=== PATIENT | male | born 1965 | race Caucasian/White ===

== ENCOUNTER → 2020-03-12 11:00 | Outpatient (CLI) | payer BC, SELFPAY ==
[2020-02-22 07:10] VITALS: BMI 47.4
== END ==
PROVIDERS: Referring Provider Internal Medicine Critical Care Medicine; Visit Provider Internal Medicine Critical Care Medicine
DX: G47.33 Obstructive sleep apnea (adult) (pediatric) (principal)
CPT/HCPCS: 98960; G0463

== ENCOUNTER 2020-06-07 16:44 | Outpatient (RCR) | payer BC, SELFPAY ==
[2020-05-23 07:45] VITALS: BMI 46.8
== END 2020-08-20 23:59 ==
LOC: IMMUN 16:44
PROVIDERS: PCP Family Medicine; Visit Provider Family Medicine
DX: Z23 Encounter for immunization (principal)
CPT/HCPCS: 0001A; 0002A; 91300

== ENCOUNTER 2021-05-13 15:26 | Emergency (ER) | payer BC, SELFPAY ==
[2021-05-13 15:27] VITALS: BP 147/104; PULSE 73; RESP 15; TEMP 36.1; O2SAT 97; BMI 47.5
--- NOTE | 2021-05-13 16:08 | EDS_ITS ---
HPI History of Present Illness Chief Complaint: Lower Extremity Injury Informant: patient Onset/Context/Timing Onset: Days (8 days ago) Context: Gradual Onset Current Severity: Mild Maximum Severity: Moderate Narrative Narrative: Patient presents secondary to right lower extremity pain. 8 days ago he slipped and fell on the ice. He states he hit his left hand and his right leg flew up in the air. He denies striking his right leg on anything. 2 days later when he went to go to bed he had significant pain with any weightbearing. Pain seems to be on the lateral portion of his knee and over his proximal lower leg. [facility] Medical History (Updated 05/13/21 @ 16:[address] Erna Sher MD) Depression Hypertension Insomnia Obstructive sleep apnea Home Medications cetirizine 10 mg tablet 10 mg PO DAILY 12/28/19 [History Last Taken Unknown] irbesartan 150 mg tablet 150 mg PO DAILY 12/28/19 [History Last Taken Unknown] sertraline 100 mg tablet 100 mg PO DAILY 12/28/19 [History Last Taken Unknown] trazodone 50 mg tablet 50 mg PO DAILY #30 tab 11/01/20 [Rx Last Taken Unknown] trazodone 50 mg tablet 75 mg PO QHS #135 tab 11/21/20 [Rx Last Taken Unknown] Allergy/AdvReac Type Severity Reaction Status Date / Time clarithromycin [From Biaxin] Allergy Mild diarrhea Verified 11/21/20 06:47 Family History Mother Diabetes Hypertension Father Prostate cancer Hypertension Surgical History s/p right catarct removed s/p skin cancer removed s/p tubes placed in ears Social History Smoking Status: Never smoker alcohol intake: current details: occasionally substance use type: does not use ROS ROS ED Constitutional Constitutional ED: Denies chills or fever(s) Eyes Eyes: Denies change in vision ENT ENT ED: Denies sore throat Cardiovascular Cardiovascular: Denies chest pain Respiratory/Chest Respiratory/Chest: Denies cough or dyspnea Gastrointestinal Gastrointestinal: Denies abdominal pain, nausea or vomiting Musculoskeletal Musculoskeletal: Reports arthralgias; Denies back pain or neck pain Integumentary Denies rash Neurologic Neurologic: Denies headache(s) Allergic/Immunologic Allergic/Immunologic ED: Denies urticaria EXAM Physical Exam Const Vital Signs: 05/13/21 15:27 Temperature 97.0 F L Temperature Source Temporal Pulse Rate 73 Respiratory Rate 15 Blood Pressure 147/104 H Blood Pressure Mean 118 Pulse Ox 97 Oxygen Delivery Method Room Air Positive well nourished and well developed General Appearance ED: well developed HEENT Reports moist mucous membranes Eyes PERRL and EOMs intact bilaterally Neck supple Chest Wall inspection of chest normal and palpation of chest normal Resp normal respiratory effort and clear to auscultation bilaterally Cardio regular rate and regular rhythm GI non-tender Palpation: soft Extremity Extremity Narrative: No reproducible tenderness to palpation over the right lowe r extremity. Minimal if any edema noted to the right lower extremity. Strong distal pulses. Full range of motion of joints with good sensation distally. Neuro oriented x3 and no sensory deficits noted Sensorium / Orientation: alert Motor Exam: strength 5/5 throughout Psych mental status grossly normal Skin no rashes or lesions noted MDM MDM MDM Narrative Medical decision making narrative: X-rays of the right knee obtained. Radiography Diagnostic Testing: Clinical Impression(s) from Imaging Studies Knee X-Ray 05/13/21 16:14 IMPRESSION: Normal x-ray examination of the knee. Electronically Signed: Kyle Menendez MD (Brooks) at 16:32 EST Reading Location ID and State: [address] [place] [address] , Service support , Treatment and Re-Evaluation Comments:: X-rays from interpretation with no acute changes. Radiology interpretation is also reviewed. We discussed potential of ultrasound of the leg to rule out blood clot, however patient is very adamant that he did not strike his leg on anything. He will be referred to orthopedics for follow-up. He will continue ibuprofen. Discharge Plan Triage Chief Complaint: Lower Extremity Injury ED Provider: Erna Sher Dx/Rx/DC Orders Clinical Impression: Right knee sprain Instructions: ED Knee Sprain Prescriptions: No Action sertraline [Zoloft] 100 mg tablet 100 mg PO DAILY RF: 0 irbesartan 150 mg tablet 150 mg PO DAILY RF: 0 cetirizine [Zyrtec] 10 mg tablet 10 mg PO DAILY RF: 0 trazodone 50 mg tablet 75 mg PO QHS Qty: 135 RF: 3 trazodone 50 mg tablet 50 mg PO DAILY Qty: 30 RF: 5 Primary Care Provider: Mike Demarco Referrals: Mike Demarco MD [Primary Care Provider] - Michael James DO [STAFF PHYSICIAN] - As Needed Disposition Disposition: Home, Self Care
--- NOTE | 2021-05-13 16:14 | RAD_ITS ---
STUDY: X-RAY - RIGHT KNEE REASON FOR EXAM: Male, 55 years old. RIGHT KNEE PAIN AFTER FALLING A WEEK AGO THIS PAST WEDNESDAY. STATES IT IS STILL SORE BUT AMBULATED WITH A STEADY GAIT. TECHNIQUE: 4 view(s) of the knee. COMPARISON: None. FINDINGS: Normal visualized distal femur. Normal visualized proximal tibia and fibula. Normal proximal tibiofibular articulation. Normal medial femorotibial compartment. Normal lateral femorotibial compartment. Normal patellofemoral articulation. There is no demonstrated joint effusion. The soft tissue structures are unremarkable. RAD/Knee 4 or More Views IMPRESSION: Normal x-ray examination of the knee. Electronically Signed: Kyle Menendez MD (Brooks) at 16:32 EST Reading Location ID and State: [facility] / [place] , Service support ,
== END 2021-05-13 16:49 | disposition home or self-care (01) ==
PROVIDERS: Emergency Provider Emergency Medicine; PCP Family Medicine; Visit Provider Emergency Medicine
DX: S83.91XA Sprain of unspecified site of right knee, initial encounter (principal); I10 Essential (primary) hypertension; W00.0XXA Fall on same level due to ice and snow, initial encounter; Y93.9 Activity, unspecified; Y92.9 Unspecified place or not applicable; F32.A Depression, unspecified; G47.33 Obstructive sleep apnea (adult) (pediatric); Z79.899 Other long term (current) drug therapy
CPT/HCPCS: 73564; 99282

== ENCOUNTER 2021-05-28 11:30 | Outpatient (RCR) | payer BC, SELFPAY ==
--- NOTE | 2021-05-12 19:06 | HP.OTEVAL_ITS ---
Patient's Visit Information MARY JO BOATENG is a 55 year old M, referred to Occupational Therapy by Dr. Johnie Lindo, , with a diagnosis of CTS left. Date of Evaluation: 05/12/21 Occupational Therapist: Tangela Spicer, RMR/Tamar, CHT - Subjective This 55 year old male was seen for OT eval with dx of left CTS. pt states sx was mid Mar. possible 03/28/21- pt states he continues to have tingling and weakness in his left hand- pt states difficulty with opening jar lids and strength with other IADLs. pt would like to know what more he can do to recover fully to his PLOF. - ROM Wrist: right 65/50 left 60/65 ROM Comments: right UD35 RD20. left UD 35 RD 15 - Strength Chain Saw Mechanic: right 90# left 50# Lateral Pinch: right 14# left 12# Tripod Pinch: right 14# left 4# - Sensation Thumb: right 2.83 left 3.61 Index: right 2.83 left 3.22 Middle: right 2.83 left 3.22 Ring: right 2.83 left 3.22 Little: right 2.83 left 3.22 - Quick DASH-Disab of Arm,Shoulder& Hand Quick DASH Score: 18.3325 - Goals Goal:: pt will demo a left pre billing specialist strength at 75# or greater to increase pts ind. with ADLs and IADL s by d/c. pt will demo a increase in left tripod pinch to 8# or greater to increase pts ind. with ADls and IADls by dc Goal:: pt will demo a increase in left Forearm supination and wrist ext by 20* or greater to improve pts ROM and decrease stress on nerve by d.c Goal:: pt will demo left median nerve sensation at 2.83 monofilaments indicating return of normal sensation by dc Goal:: pt will demo understanding of scar mtg by end of 2nd visit to limit hypertrophic scarring or scar adhesions Goal:: pt will demo understanding of work ergo by end of 2nd session to decrease risk of repetitive strain injuries - Rehabilitation General Assessment: pt demo with residual CTS following his CTR along with left pre billing specialist and tripod pinch weakness limiting pts ind. with ADLs and IADLs. pt would benefit from skilled OT services 2x week for 3 weeks. Today therapist ed. pt on scar mtg, and median nerve glides along with work erg- pt demo with with need of strengthening and will initiate this next visit. pt demo understanding and agree to POC. Rehabilitation Potential: Good - Anticipated Interventions A/AAROM/PROM, Strengthening, Scar Care, Triggerpoint Release, Modalities, Joint Protection/Energy Conservation, Ergonomic Education, Education re Diagnosis, Home Program - Visit Plan Frequency: 2x /Week Duration: 2-4 Weeks General Plan: posture strengthening with t-band (high, mid and low rows). forearm stretching. and initiate BTE TEXT: Thank you for the opportunity to evaluate your patient. For Medicare and Medicare HMO plans, please review the plan of care and approve it. It will need to be FAXED BACK to us at [phone] for Medicare purposes. Please let me know if there are questions or concerns regarding this plan of care. Physician Signature: Date:
--- NOTE | 2021-05-28 11:56 | HP.OTDCSUM_ITS ---
It has been my pleasure to treat MARY JO BOATENG under orders from Dr. Johnie Lindo DO, for the diagnosis of CTS left for a total of 6 visit(s). Please see the following information for a summary of their discharge status. % Improvement: 85 Objective/Function: pt demo with a 55# left battery container tester aluminum strength increase from 50#. left lateral pinch increased from 12# to 14#. left tripod pinch increased from 4# to 10#. monofilament testing left hand improved to 2.83 from thumb at 3.61,and 3.22 - indicating nerve repair- pt has done well in therapy and can continue with a HEP to increase functional strength. Patient Goals: Use Hand/Wrist/Arm Normally Again, Decrease Tingling/Numbness Goal:: pt will demo a left battery container tester aluminum strength at 75# or greater to increase pts ind. with ADLs and IADL s by d/c. pt will demo a increase in left tripod pinch to 8# or greater to increase pts ind. with ADls and IADls by dc Goal:: pt will demo a increase in left Forearm supination and wrist ext by 20* or greater to improve pts ROM and decrease stress on nerve by d.c Goal:: pt will demo left median nerve sensation at 2.83 monofilaments indicating return of normal sensation by dc Goal:: pt will demo understanding of scar mtg by end of 2nd visit to limit hypertrophic scarring or scar adhesions Goal:: pt will demo understanding of work ergo by end of 2nd session to decrease risk of repetitive strain injuries Plan: cont US and BTE strengthening Discharge Comments: pt was seen for 6 visit in OT following a left CTR- pt did well and has returned to his PLOF. pt will continue with HEP to further strengthen his battery container tester aluminum strength. If there are questions or concerns regarding this patient's occupational therapy, please fell free to call me at [phone]. Thank you for the referral of this patient. Sincerely, Tangela Spicer, OTR/L, CHT
== END 2021-05-28 12:56 | disposition home or self-care (01) ==
LOC: OT 11:30
PROVIDERS: PCP Family Medicine; Referring Provider Orthopaedic Surgery; Visit Provider Orthopaedic Surgery
DX: G56.02 Carpal tunnel syndrome, left upper limb (principal)
CPT/HCPCS: 97035; 97110; 97140; 97166; 97530

== ENCOUNTER 2023-03-29 05:34 | Emergency (ER) | payer BC, SELFPAY ==
[2023-03-29 05:35] VITALS: BP 172/95; PULSE 85; RESP 18; TEMP 36.6; O2SAT 98; BMI 48.3
--- NOTE | 2023-03-29 05:52 | EX.ED.DYSGE1 ---
HPI History of Present Illness Chief Complaint: Complaint Informant: patient Onset/Context/Timing Onset: Days (5) Context: Sudden Onset Timing: Intermittent Quality: Sharp Location: Right testicle Worsened by: Nothing Relieved by: Nothing Narrative Narrative: Presents with right testicular pain that began 5 days ago. Patient states it began rather suddenly. Patient states he saw his primary care physician at that time. Patient states they did an ultrasound to rule out torsion. Patient states this was negative. Patient states his pain had resolved. Patient states that this morning approximately 3 and half hours prior to arrival, his pain began again. Patient describes the pain as sharp. Patient states it is in the right testicle and radiates up into his lower abdomen. Patient states nothing makes it better and nothing makes it worse. Patient denies any fevers or chills. Patient denies any dysuria or hematuria. Patient admits to some nausea and vomiting. Patient states this is mainly from the pain. [facility] Medical History (Updated 03/29/23 @ 07:[address] Jose Rodriguez, DO) Depression Hypertension Insomnia Obstructive sleep apnea Home Medications cetirizine 10 mg tablet (Zyrtec) 10 mg PO DAILY 12/28/19 [History Last Taken Unknown] sertraline 100 mg tablet (Zoloft) 150 mg PO DAILY 12/28/19 [History Last Taken Unknown] ascorbate calcium (vitamin C) 500 mg tablet 500 mg PO DAILY 10/15/21 [History Last Taken Unknown] multivitamin (Daily Multi-Vitamin tablet) 1 tab PO DAILY 10/15/21 [History Last Taken Unknown] trazodone 50 mg tablet 75 mg (1.5 x 50 mg) PO QHS #135 tabs 03/09/23 [Rx Last Taken Unknown] alprazolam 0.5 mg tablet mg PO QHS PRN anxiety 03/29/23 [History Last Taken Unknown] buspirone 15 mg tablet 15 mg PO BID 03/29/23 [History Last Taken Unknown] irbesartan 150 mg tablet 150 mg PO DAILY 03/29/23 [History Last Taken Unknown] metformin 500 mg tablet 500 mg PO BID 03/29/23 [History Last Taken Unknown] oxycodone-acetaminophen 5 mg-325 mg tablet 1 tab PO Q6H PRN PRN Pain 3 days #12 TABLETS 03/29/23 [Rx Last Taken Unknown] Allergy/AdvReac Type Severity Reaction Status Date / Time clarithromycin [From Biaxin] Allergy Mild diarrhea Verified 03/29/23 05:41 Family History Mother Diabetes Hypertension Father Prostate cancer Hypertension Surgical History s/p right catarct removed s/p skin cancer removed s/p tubes placed in ears Social History Smoking Status: Never smoker alcohol intake: current details: occasionally substance use type: does not use ROS ROS ED Constitutional Constitutional ED: Denies chills or fever(s) Eyes Eyes: Denies blurry vision or change in vision ENT ENT ED: Denies rhinorrhea or sore throat Cardiovascular Cardiovascular: Denies chest pain or palpitations Respiratory/Chest Respiratory/Chest: Reports cough; Denies dyspnea Gastrointestinal Gastrointestinal: Reports nausea and vomiting Genitourinary Genitourinary ED: Denies dysuria or hematuria Musculoskeletal Musculoskeletal: Denies back pain or neck pain Integumentary Denies abscess or rash Neurologic Neurologic: Denies headache(s) or weakness Allergic/Immunologic Allergic/Immunologic ED: Denies mouth swelling or urticaria EXAM Physical Exam Const Vital Signs: 03/29/23 05:35 03/29/23 07:08 Temperature 97.9 F Temperature Source Temporal Pulse Rate 85 75 Respiratory Rate 18 15 Blood Pressure 172/95 H 148/87 H Blood Pressure Mean 120 107 Pulse Ox 98 92 Oxygen Delivery Method Room Air Room Air Positive well nourished, well developed and obese General Appearance ED: well developed and NAD Nutritional Appearance: obese HEENT Reports moist mucous membranes Neck supple and no JVD Chest Wall inspection of chest normal and palpation of chest normal Resp normal respiratory effort and clear to auscultation bilaterally Cardio regular rate and regular rhythm GI non-tender and non-distended Palpation: soft Narrative: There is no tenderness over the testicles. They have a vertical lie with the epididymis posterior. There is no edema. There is no erythema. There is no inguinal hernia noted. Back/Spine no CVA tenderness Neuro oriented x3, CN's II-XII intact bilaterally and no sensory deficits noted Sensorium / Orientation: alert Motor Exam: strength 5/5 throughout Psych mental status grossly normal MDM MDM MDM Narrative Medical decision making narrative: Differential diagnosis includes epididymitis, orchitis, inguinal hernia, ureteral calculus, and urinary tract infection. CT scan of the abdomen pelvis will be obtained to assess for ureteral calculus. Urinalysis will be obtained to assess for urinary tract infection. CBC will be obtained to assess for leukocytosis and anemia. Basic metabolic profile will be obtained to assess for electrolyte abnormality and renal function. Lab Data Attestation: I reviewed the patient's lab results. Lab results narrative: CBC was reviewed and was within normal limits. Basic metabolic profile was reviewed and was within normal limits. Urinalysis was reviewed. Occult blood was 250 with 5-10 red blood cells. There are 5-10 white blood cells noted. There is leukocyte esterase of 25. Labs: Laboratory Results - last 24 hr 03/29/23 03/29/23 05:43 07:26 WBC 9.7 RBC 4.88 Hgb 14.7 Hct 44.4 MCV 91.0 MCH 30.1 MCHC 33.1 RDW Std Deviation 44.5 H RDW Coeff of Rick 13.3 Plt Count 266 MPV 10.1 Immature Gran % (Auto) 0.600 Neut % (Auto) 62.5 Lymph % (Auto) 27.2 [place] % (Auto) 7.5 Eos % (Auto) 1.3 Baso % (Auto) 0.9 Absolute Neuts (auto) 6.1 Absolute Lymphs (auto) 2.64 Nucleated RBC % 0 Sodium 141 Potassium 4.0 Chloride 104 Carbon Dioxide 27.0 Anion Gap 10 BUN 22 H Creatinine 1.17 Estim Creat Clear Calc 108.99 Est GFR (MDRD) Af Amer 83 Est GFR (MDRD) Non-Af 69 BUN/Creatinine Ratio 18.8 Glucose 151 H Calcium 9.3 Urine Color Yellow Urine Clarity Clear Urine pH 6.0 Ur Specific [place] 1.025 Urine Protein 30 H Urine Glucose (UA) Normal Urine Ketones 5 H Urine Occult Blood 250 H Urine Nitrite Negative Urine Bilirubin Negative Urine Urobilinogen Normal Ur Leukocyte Esterase 25 H Urine RBC 5-10 SEEN Urine WBC 5-10 SEEN Ur Squamous Epith Cells 0-5 SEEN Urine Bacteria 1+ Urine Mucus 1+ Radiography Diagnostic Testing: Clinical Impression(s) from Imaging Studies Abdomen/Pelvis CT 03/29/23 05:57 IMPRESSION: 1. Mild right obstructive uropathy secondary to 5 mm UVJ stone 2. Hepatic steatosis and other nonurgent findings within body of report Electronically Signed: Jose Barone MD at 6:59 EST , CT scan of the abdomen pelvis was obtained. There is a 5 mm calculus at the right ureterovesicular junction with moderate hydronephrosis and hydroureter. This was interpreted by the radiologist was also independently reviewed by myself. Treatment and Re-Evaluation :: Patient was given IV fluids, morphine, and Zofran. Patient had no relief with the morphine. Patient was given a dose of Dilaudid. Patient states this did improve his pain. Patient was requesting further pain medication. Since the patient has normal renal function, patient was given a dose of Toradol. Patient was advised of his findings. Patient was given a prescription for Percocet. Patient was given referral for urology. Patient was instructed to follow-up in 3 to 5 days. Patient understood and was agreeable with the plan. All questions were answered. Discharge Plan Triage Chief Complaint: Complaint ED Provider: Jose Rodriguez Dx/Rx/DC Orders Clinical Impression: Calculus of distal right ureter, Morbid obesity with BMI of 45.0-49.9, adult Instructions: ED Kidney Stone with Pain Prescriptions: New oxycodone-acetaminophen [oxycodone-acetaminophen] 5-325 mg tablet 1 tab PO Q6H PRN PRN (Reason: Pain) 3 Days Qty: 12 0RF No Action sertraline [Zoloft] 100 mg tablet 150 mg PO DAILY cetirizine [Zyrtec] 10 mg tablet 10 mg PO DAILY multivitamin [Daily Multi-Vitamin] Tablet 1 tab PO DAILY ascorbate calcium (vitamin C) 500 mg tablet 500 mg PO DAILY buspirone 15 mg tablet 15 mg PO BID metformin 500 mg tablet 500 mg PO BID irbesartan 150 mg tablet 150 mg PO DAILY alprazolam 0.5 mg tablet PO QHS PRN trazodone 50 mg tablet 75 mg PO QHS Qty: 135 3RF Primary Care Provider: Mike Demarco Referrals: Mike Demarco MD [Primary Care Provider] - 3-5 Days Edenilson Soares MD [Med Staff - Active Staff] - 3-5 Days Disposition Disposition: Home, Self Care
--- NOTE | 2023-03-29 05:57 | CT_ITS ---
INDICATION: Right testicular, inguinal pain EXAMINATION: CT ABDOMEN AND PELVIS WITHOUT CONTRAST TECHNIQUE: Helically acquired images were obtained of the abdomen and pelvis without IV contrast. 2-D reconstructions reviewed. A radiation dose optimization technique was used for this scan. IV Contrast dosage and agent: None Oral contrast: None COMPARISON: None. FINDINGS: LOWER CHEST: No acute findings within the imaged lung bases. Heart size within normal limits. LIVER: Fatty infiltration of liver. No discrete mass. GALLBLADDER AND BILIARY TREE: No calcified gallstones identified. No pericholecystic edema demonstrated. No significant biliary ductal dilation. PANCREAS: No discrete mass or peripancreatic edema. SPLEEN: Normal size without discrete mass. ADRENAL GLANDS: Unremarkable. KIDNEYS AND URETERS: Right greater than left bilateral perinephric fat stranding. Mild right hydroureteronephrosis secondary to 5 mm ureterovesical junction stone. No hydronephrosis on the left. No discrete renal mass. PERITONEUM: No significant free peritoneal fluid. No free air detected. RETROPERITONEUM: No retroperitoneal mass or pathologic fluid collection. BOWEL: Normal appendix medial to cecum within right lower quadrant. No bowel obstruction or significant bowel thickening. No focal inflammatory change. LYMPH NODES: No enlarged mesenteric or retroperitoneal lymph nodes. VESSELS: No acute findings. No abdominal aortic aneurysm. URINARY BLADDER: 5 mm right UVJ stone. Incompletely distended urinary bladder. REPRODUCTIVE ORGANS: No pelvic masses. ABDOMINAL WALL: Small bilateral inguinal fat hernias. BONES: Mild skeletal degenerative changes. CT/Abdomen/Pelvis without Cont IMPRESSION: 1. Mild right obstructive uropathy secondary to 5 mm UVJ stone 2. Hepatic steatosis and other nonurgent findings within body of report Electronically Signed: Jose Barone MD at 6:59 EST ,
[2023-03-29] MEDS: 0.9% Normal Saline (1000mL) 1,000 ML 1000 ML IV (06:03)
[2023-03-29] MEDS: Ondansetron 4 MG/2 ML Vial IV (06:03)
[2023-03-29] MEDS: Morphine 4 MG/ML Syringe IV (06:03)
[2023-03-29 06:08] LABS: Absolute Lymphocyte Count 2.64 X10^3/uL (0.83-4.51); Absolute Neutrophil Count 6.1 X10^3/uL (2.0-7.7); Basophil# 0.09 X10^3/uL; Basophil% 0.9 % (0-1); Eosinophil# 0.13 X10^3/uL; Eosinophils% 1.3 % (0-5); Hematocrit 44.4 % (40-54); Hemoglobin 14.7 g/dL (13.0-16.5); Lymphocyte # 2.64 X10^3/ul (0.83-4.51); Lymphocyte % 27.2 % (19-41); Mean Corp Hgb Conc 33.1 g/dL (32-36); Mean Corpuscular Hgb 30.1 pg (27.0-32.0); Mean Platelet Vol. 10.1 fl (6.2-12.0); Monocyte# 0.73 X10^3/uL; Monocyte% 7.5 % (0-10); NRBC Flagged by Analyzer 0 % (0-5); Neutrophil # 6.05 X10^3/uL (2.7-7.7); Neutrophil % 62.5 % (47-70); Platelet Count 266 K/mm3 (150-450); RBC Distribution Width CV 13.3 % (11.6-14.6); RBC Distribution Width SD 44.5 fl (35.1-43.9); Red Blood Count 4.88 M/mm3 (4.6-6.2); White Blood Count 9.7 K/mm3 (4.4-11.0)
--- OUTSIDE RECORDS SUMMARY | 2023-03-29 06:17 | XMS RPT_ITS | CCD ---
Author Name Unknown Address [address] [place] [address] Organization [facility] Care Team Providers Care Management Instructor Name Role Phone Debora Demarco MD Primary Care Provider DEBORA DEMARCO Referring Unavailab DEBORA Najera Primary Care Unavailab DEBORA Najera Primary Care Unavailab DEBORA Najera Attending Unavailab DEBORA Najera Primary Care Unavailab DEBORA Najera Attending Unavailab DEBORA Najera Primary Care Unavailab DEBORA Najera Primary Care Unavailab DEBORA Najera Attending Unavailab DEBORA Najera Primary Care Unavailab DEBORA Najera Referring Unavailab DEBORA Najera Primary Care Unavailab le Allergies Allergy Classification Reported Allergen(s) Allergy Type Date of Onset Reaction(s) Facility (13 sources) Clarithromycin; Translations: [CLARITHROMYCIN] Drug Allergy 02-20-2016 Diarrhea [facility] (10 sources) atorvastatin; Translations: [ATORVASTATIN] Drug Allergy 02-24-2022 Intolerance [facility] Work Phone: Medications Current Medications Medication Drug Class(es) Dates Sig (Normalized) Sig (Original) amoxicillin 875 mg / clavulanate 125 mg oral tablet (1 source) Penicillin-class Antibacterial Start: 12-15-2022 End: 12-22-2022 take 1 tablet by mouth twice daily amoxicillin-clav ulanic acid (AUGMENTIN) 875-125 mg per tablet Take 1 tablet by mouth two times a day for 7 days. 14 tablet 0 12/15/2022 12/22/2022 Active Completed/Discontinued Medications Medication Drug Class(es) Dates Sig (Normalized) Sig (Original) atorvastatin 20 mg oral tablet (4 sources) HMG-CoA Reductase Inhibitor Start: 09-23-2020 End: 02-24-2022 take 1 tablet by mouth once daily at bedtime for hyperlipidemia atorvastatin (LIPITOR) 20 mg tablet Take 1 tablet by mouth daily at bedtime. For cholesterol. 30 tablet 5 09/23/2020 02/24/2022 Discontinued Problems Active Problems Problem Classification Problem Date Documented Da te Episodic/Chronic Abdominal pain (1 source) Right lower quadrant pain; Translations: [Groin pain, right] Onset: 03-24-2023 Episodic Anxiety disorders (11 sources) Mixed anxiety and depressive disorder; Translations: [Other specified anxiety disorders] Onset: 02-24-2022 Chronic Disorders of lipid metabolism (15 sources) Mixed hyperlipidemia; Translations: [Mixed hyperlipidemia] Onset: 09-20-2020 09-20-2020 Chronic Essential hypertension (19 sources) Hypertensive disorder; Translations: [Essential (primary) hypertension] Onset: 09-19-2020 09-19-2020 Chronic Genitourinary symptoms and ill-defined conditions (4 sources) Increased frequency of urination; Translations: [Frequency of micturition] Onset: 02-25-2022 Episodic Hyperplasia of prostate (13 sources) Urinary frequency due to benign prostatic hypertrophy; Translations: [Benign prostatic hyperplasia with lower urinary tract symptoms] Onset: 02-25-2022 Chronic Malaise and fatigue (1 source) Fatigue; Translations: [Other fatigue] Episodic Nutritional deficiencies (12 sources) Vitamin D deficiency; Translations: [Vitamin D deficiency, unspecified] Onset: 01-15-2022 01-15-2022 Chronic Other male genital disorders (2 sources) Right testicular pain; Translations: [Testicular pain, right] Onset: 03-24-2023 Episodic Other nutritional; endocrine; and metabolic disorders (12 sources) Morbid obesity; Translations: [Morbid (severe) obesity due to excess calories] 09-19-2020 Chronic Other nutritional; endocrine; and metabolic disorders (1 source) Body mass index 40+ - severely obese; Translations: [Morbid (severe) obesity due to excess calories] 12-01-2022 Chronic Other nutritional; endocrine; and metabolic disorders (1 source) Morbid (severe) obesity due to excess calories; Translations: [Obesity, Class III, BMI 40-49.9 (morbid obesity) (HCC)] Onset: 12-01-2022 Chronic Other upper respiratory disease (11 sources) Allergic rhinitis; Translations: [Allergic rhinitis, unspecified] 09-19-2020 Chronic Other upper respiratory infections (1 source) Chronic sinusitis, unspecified; Translations: [Unspecified sinusitis (chronic)] 12-15-2022 Chronic Residual codes; unclassified (14 sources) Obstructive sleep apnea syndrome; Translations: [Obstructive sleep apnea (adult) (pediatric)] 09-19-2020 Chronic Residual codes; unclassified (1 source) Obstructive sleep apnea (adult) (pediatric); Translations: [CARY treated with BiPAP] Onset: 09-19-2020 Chronic Past or Other Problems Problem Classification Problem Date Documented Date Episodic/Chronic Diabetes mellitus without complication (20 sources) Impaired fasting glycemia; Translations: [Impaired fasting glucose] Onset: 02-24-2022 09-20-2020 Episodic Immunizations and screening for infectious disease (4 sources) Patient encounter status; Translations: [Encounter for screening for human immunodeficiency virus [HIV]] Onset: 12-01-2022 Episodic Other screening for suspected conditions (not mental disorders or infectious disease) (10 sources) Other specified abnormal findings of blood chemistry; Translations: [Other abnormal blood chemistry] Onset: 01-15-2022 01-15-2022 Episodic Spondylosis; intervertebral disc disorders; other back problems (3 sources) Acute back pain with sciatica; Translations: [Lumbago with sciatica, left side] Onset: 05-26-2022 Episodic Results Test Name Value Interpretation Reference Range Facil ity Vital Signs Date Time Vital Sign Value Performing Clinician Hitesh hurtado 12-15-2022 18:41-0400 Body temperature 98.4 [degF] Earlene Acuna APRN.CNP Work Phone: [facility] 12-15-2022 18:41-0400 Body weight 157.49 kg Earlene Acuna APRN.CNP Work Phone: [facility] 12-15-2022 18:41-0400 Diastolic blood pressure 84 mm[Hg] Earlene Acuna APRN.CNP Work Phone: [facility] 12-15-2022 18:41-0400 Heart rate 86 /min Earlene Acuna NETWORK DESKTOP SUPPORT SPECIALIST.[employer] Work Phone: [facility] 12-15-2022 18:41-0400 Respiratory rate 16 /min Earlene Acuna NETWORK DESKTOP SUPPORT SPECIALIST.[employer]FFER [employer] Work Phone: [facility] 12-15-2022 18:41-0400 SaO2% (BldA) [Mass fraction] 96 % Earlene Acuna NETWORK DESKTOP SUPPORT SPECIALIST.[employer] BU[employer] Work Phone: [facility] 12-15-2022 18:41-0400 Systolic blood pressure 124 mm[Hg] Earlene Acuna NETWORK DESKTOP SUPPORT SPECIALIST.[employer] Work Phone: [facility] 12-01-2022 17:16-0400 Body weight 156.67 kg Debora Demarco MD Work Phone: [facility] 12-01-2022 17:16-0400 Diastolic blood pressure 76 mm[Hg] Debora Demarco MD Work Phone: [facility] 12-01-2022 17:16-0400 Heart rate 75 /min Debora Demarco MD Work Phone: [facility] 12-01-2022 17:16-0400 Respiratory rate 18 /min Debora Demarco MD Work Phone: [facility] 12-01-2022 17:16-0400 SaO2% (BldA) [Mass fraction] 97 % Debora Demarco MD Work Phone: [facility] 12-01-2022 17:16-0400 Systolic blood pressure 116 mm[Hg] Debora Demarco MD Work Phone: [facility] 05-26-2022 17:12-0400 Body weight 156.94 kg Debora Demarco MD Work Phone: [facility] 05-26-2022 17:12-0400 Diastolic blood pressure 82 mm[Hg] Debora Demarco MD Work Phone: [facility] 05-26-2022 17:12-0400 Heart rate 77 /min Debora Demarco MD Work Phone: [facility] 05-26-2022 17:12-0400 Respiratory rate 18 /min Debora Demarco MD Work Phone: [facility] 05-26-2022 17:12-0400 SaO2% (BldA) [Mass fraction] 96 % Debora Demarco MD Work Phone: [facility] 05-26-2022 17:12-0400 Systolic blood pressure 132 mm[Hg] Debora Demarco MD Work Phone: [facility] 03-23-2022 11:21-0500 Body weight 157.13 kg Debora Demarco MD Work Phone: [facility] 03-23-2022 11:21-0500 Diastolic blood pressure 76 mm[Hg] Debora Demarco MD Work Phone: [facility] 03-23-2022 11:21-0500 Heart rate 72 /min Debora Demarco MD Work Phone: [facility] 03-23-2022 11:21-0500 Respiratory rate 16 /min Debora Demarco MD Work Phone: [facility] 03-23-2022 11:21-0500 SaO2% (BldA) [Mass fraction] 96 % Debora Demarco MD Work Phone: [facility] 03-23-2022 11:21-0500 Systolic blood pressure 118 mm[Hg] Debora Demarco MD Work Phone: [facility] 02-24-2022 17:41-0500 Body height 181 cm Debora Demarco MD Work Phone: [facility] 02-24-2022 17:41-0500 Body weight 158.31 kg Debora Demarco MD Work Phone: [facility] 02-24-2022 17:41-0500 Diastolic blood pressure 72 mm[Hg] Debora Demarco MD Work Phone: [facility] 02-24-2022 17:41-0500 Heart rate 60 /min Debora Demarco MD Work Phone: [facility] 02-24-2022 17:41-0500 Respiratory rate 16 /min Debora Demarco MD Work Phone: [facility] 02-24-2022 17:41-0500 SaO2% (BldA) [Mass fraction] 97 % Debora Demarco MD Work Phone: [facility] 02-24-2022 17:41-0500 Systolic blood pressure 120 mm[Hg] Debora Demarco MD Work Phone: [facility] 12-23-2021 14:25-0400 Body weight 156.04 kg Debora Demarco MD Work Phone: [facility] 12-23-2021 14:25-0400 Diastolic blood pressure 82 mm[Hg] Debora Demarco MD Work Phone: [facility] 12-23-2021 14:25-0400 Heart rate 87 /min Debora Demarco MD Work Phone: [facility] 12-23-2021 14:25-0400 Respiratory rate 18 /min Debora Demarco MD Work Phone: [facility] 12-23-2021 14:25-0400 SaO2% (BldA) [Mass fraction] 97 % Debora Demarco MD Work Phone: [facility] 12-23-2021 14:25-0400 Systolic blood pressure 128 mm[Hg] Debora Demarco MD Work Phone: [facility] Encounters Encounter Date Encounter Type Care Provider Facility Start: 03-24-2023 ambulatory DEBORA Nguyen acility:[facility] Start: 03-24-2023 End: 03-25-2023 ambulatory DEBORA DEMARCO Facility:[facility] Start: 03-11-2023 End: 03-12-2023 ambulatory DEBORA DEMARCO Facility:[facility] Start: 01-28-2023 Refill Debora Demarco MD Work Phone: [facility] [place] Procedures Date Procedure Procedure Detail Performing Clinician Start: 12-01-2022 INFLUENZA VACCINE, A GE 6 MO - 64 YR, QUADRIVALENT (AFLURIA, FLULAVAL, FLUZONE) Debora Demarco MD Work Phone: Start: 02-28-2022 Lipid 1996 panel - S margy or Plasma Debora Demarco MD Work Phone: Start: 12-23-2021 Urnls dip stick/tabl et rgnt auto w/o microscopy Debora Demarco MD Work Phone: Start: 09-19-2020 Adult depression scr eening assessment Maria E Goldman NETWORK DESKTOP SUPPORT SPECIALIST.[employer] Work Phone: Plan of Treatment Date Care Activity Detail Author Start: 10-16-2027 Urine microalbumin profile [facility] Start: 02-28-2027 Lipid 1996 panel - S margy or Plasma Lipid Screening [facility] Start: 02-28-2027 LIPID SCREEN LIPID SCREEN [facility] Start: 12-23-2026 PROSTATE CANCER SCRE ENING DISCUSSION PROSTATE CANCER SCREENING DISCUSSION [facility] Start: 01-13-2026 LIPID SCREEN LIPID SCREEN [facility] Start: 02-28-2025 DIABETES SCREEN DIABETES SCREEN [facility] Start: 02-28-2025 Diabetes Screening Diabetes Screenin g [facility] Start: 12-23-2024 DIABETES SCREEN DIABETES SCREEN [facility] Start: 01-14-2024 DIABETES SCREEN DIABETES SCREEN [facility] Start: 12-02-2023 Annual PCP Team [employer] bolivar Disease Visit Annual PCP Team Chronic Disease Visit [facility] Start: 12-02-2023 BP Controlled (<130/80) BP Controlle d (<130/80) [facility] Start: 05-27-2023 ANNUAL PCP TEAM COLLECTIVE BARGAINING SPECIALIST [place] DISEASE VISIT ANNUAL PCP TEAM CHRONIC DISEASE VISIT [facility] Start: 03-23-2023 ANNUAL PCP TEAM COLLECTIVE BARGAINING SPECIALIST [place]OLIVAR DISEASE VISIT ANNUAL PCP TEAM CHRONIC DISEASE VISIT [facility] Start: 03-23-2023 BP CONTROLLED (<130/80) BP CONTROLLE D (<130/80) [facility] Start: 02-24-2023 ANNUAL PCP TEAM COLLECTIVE BARGAINING SPECIALIST BOLIVAR DISEASE VISIT ANNUAL PCP TEAM CHRONIC DISEASE VISIT [facility] Start: 02-24-2023 BP CONTROLLED (<130/80) BP CONTROLLE D (<130/80) [facility] Start: 02-24-2023 HEPATITIS B (1 of 3 - 3-dose series) HEPATITIS B (1 of 3 - 3-dose series) [facility] Immunizations Immunization Date Immunization Notes Care Provider Rey ilanmorgan 12-01-2022 influenza, injectabl e, quadrivalent, contains preservative Debora Demarco MD Work Phone: [facility] 12-06-2021 COVID-19 booster vaccine, age 12+ yr, bivalent (PFIZER-BIONTECH) Debora Demarco MD Work Phone: [facility] 12-06-2021 influenza, injectabl e, quadrivalent, preservative free Debora Demarco MD Work Phone: [facility] Work Phone: 12-06-2021 influenza, seasonal, injectable Debora Demarco MD Work Phone: [facility] 02-05-2021 zoster vaccine recombinant Debora Demarco MD Work Phone: [facility] Work Phone: 11-02-2020 influenza virus vaccine, unspecified formulation Maria E Goldman NETWORK DESKTOP SUPPORT SPECIALIST.[employer] Work Phone: [facility] 11-02-2020 influenza, injectabl e, quadrivalent, preservative free Debora Demarco MD Work Phone: [facility] Work Phone: 11-02-2020 zoster vaccine recombinant Maria E Goldman NETWORK DESKTOP SUPPORT SPECIALIST.BO[employer] BUFFER [employer] Work Phone: [facility] 06-28-2020 COVID-19 vaccine, ag e 12+ yr (PFIZER-BIONTECH - PURPLE TOP) Maria E Goldman NETWORK DESKTOP SUPPORT SPECIALIST.BOAT BUFFER P[employer]IC Work Phone: [facility] Work Phone: 06-07-2020 COVID-19 vaccine, ag e 12+ yr (PFIZER-BIONTECH - PURPLE TOP) Maria E Goldman NETWORK DESKTOP SUPPORT SPECIALIST.BO[employer] BUFFER [employer]IC Work Phone: [facility] Work Phone: 12-12-2019 influenza, injectabl e, quadrivalent, preservative free Debora Demarco MD Work Phone: [facility] Work Phone: 10-15-2017 tetanus toxoid, reduced diphtheria toxoid, and acellular pertussis vaccine, adsorbed Maria E Podlogar NETWORK DESKTOP SUPPORT SPECIALIST.BO[employer] BUFFER [employer]IC Work Phone: [facility] 12-14-2016 influenza, seasonal, injectable, preservative free Maria E Podlogar NETWORK DESKTOP SUPPORT SPECIALIST.BO[employer] BUFFER [employer]IC Work Phone: [facility] Work Phone: 03-05-2009 novel [id number], preservative-free, injectable Maria E Podlogar NETWORK DESKTOP SUPPORT SPECIALIST.BO[employer] BUFFER [employer] Work Phone: [facility] Work Phone: Payers Date Payer Category Payer Unknown ALVARO DARNELL SS PPO [id number] 2019-Present [phone] [address] [place] [address] PPO [id number] 2019 Unknown ALVARO BOTELLO ACCE SS PPO [id number] 2019-Present [phone] [address] [place] [address] PPO [id number] 2019 Unknown [id number] Social History Date Type Detail Facility Start: 05-19-2019 End: 12-23-2021 Tobacco smoking status NHIS Never smoked tobacco [facility] Start: 05-19-2019 End: 12-23-2021 Tobacco use and exposure Smokeless tobacco non-user [facility] Start: 01-10-2021 End: 12-15-2022 Alcohol intake Current drinker of alcohol (finding) [facility] Start: 09-18-2020 End: 02-20-2022 History SDOH Alcohol Frequency 3 [facility] Start: 09-18-2020 End: 02-20-2022 History SDOH Alcohol Std Drinks 1 [facility] Start: 09-18-2020 End: 02-20-2022 History SDOH Alcohol Binge 2 [place] [facility] Start: 09-19-2020 History SDOH Alcohol Comment 1-2 drinks per month [facility] Start: 09-18-2020 End: 02-20-2022 History SDOH Physical Activity MPS 5 [facility] Start: 09-18-2020 Education 17 [facility] Start: 1965 Sex Assigned At Male C [facility] Start: 12-11-2020 End: 12-23-2021 Exposure to SARS-CoV-2 (event) Not sure [facility] Start: 02-20-2022 History SDOH Physica l Activity DPW 0 [facility] Start: 02-20-2022 End: 12-01-2022 [facility] Start: 02-20-2022 End: 12-01-2022 Social connection and isolation panel [facility] Do you belong to any clubs or organizations such as faith groups, unions, fraMeilishuo or athletic groups, or school groups? No [facility] Are you now , , , , never or living with a partner? [facility] How often to you hav e a drink containing alcohol? Monthly or less [facility] How many standard dr inks containing alcohol do you have on a typical day? 1 or 2 [facility] How often do you hav e 6 or more drinks on 1 occasion? Less than monthly [facility] How hard is it for y ou to pay for the very basics like food, housing, medical care, and heating Not hard at all [facility] Do you feel stress - tense, restless, nervous, or anxious, or unable to sleep at night because your mind is troubled all the time - these days [OSQ] To some extent [facility] (I/We) worried saira er (my/our) food would run out before (I/we) got money to buy more. Never true [facility] Start: 02-05-2020 Gender identity Identifies as male gender (finding) [facility] Start: 02-05-2020 Sexual orientation Heterosexual (neeru martin) [facility] Clinical Notes 01-10-2021 to 01-10-2024 Telephone Encounter - Radha GaliciaCLARE - 01/28/2023 10:34 AM Earlene Akhtar APRN.[employer]AT BUFFER [employer] - 12/15/2022 6:49 PM Debora Warner MD - 12/01/2022 5:34 PM EDT Note Date & Type Note Facility 03-24-2023 Note HNO ID: [id number] Author: ETHEL MONROY CT Service: Radiology Author Type: Technologist Type: Progress Notes Filed: 03/24/2023 13:30 Note Text: Radiology Service Progress Note PATIENT NAME: Mary Jo Ordoñez DATE OF SERVICE: March 24, 2023 TIME: 1:29 PM PATIENT IDENTITY VERIFICATION COMPLETED USING TWO (2) IDENTIFIERS: Name and Date of confirmed by patient verbally and Name and Date of confirmed by identification band. FALL SCREENING: Has the patient had 2 falls in the last year or 1 fall with injury or currently using an Ambulatory Assistive Device (Walker, Cane, Wheelchair, Crutches, etc.)? No PATIENT GENDER DATA: Male PATIENT RELEVANT IMPLANT DATA REVIEWED: Not Applicable RADIOLOGY DEPARTMENT: Ultrasound PERIPHERAL IV DATA: Not applicable SIGNED BY: Ethel Monroy RDMS, RVJamel March 24, 2023 1:29 PM [facility] 03-24-2023 Note HNO ID: [id number] Author: DEBORA DEMARCO MD Service: ? Author Type: Physician Type: Progress Notes Filed: 03/24/2023 11:19 Note Text: Chief Complaint Patient presents with: Pain: Right testicle pain, woke up in the middle of the night with it. 3 weeks ago pulled left side/groin, it subsided a day or 2 ago. HPI Mary Jo Ordoñez is a 57 year old male who presents here today for Above Complaints. Patient complaining today of right testicular pain which started around 1am. Woke up in the middle of the night with sensation like something is pulling down on his testicle. Was able to change sleeping positions which helped for a few hours. Treated with ice pack which did help temporarily. Pain currently 5/10. No exacerbating factors. Denies fever/chills, testicular swelling, erythema, dysuria, urinary frequency, penile discharge, new sexual contacts, recent injury. Past medical history, appointments, medications, allergies reviewed. Previous Medical History PAST MEDICAL HISTORY Diagnosis Date Allergic rhinitis BPH (benign prostatic hyperplasia) Cutaneous horn excised Depression Elevated LFTs 01/15/[address] 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 [employer] Mixed hyperlipidemia Morbid obesity (HCC) CARY treated with BiPAP Traumatic cataract of right eye Vitamin D insufficiency Previous Surgical History PAST SURGICAL HISTORY Procedure Laterality Date COLONOSCOPY 2018 repeat in 5 years PAST SURGICAL HISTORY OF Left 2020 melanoma excision, ear REMV CATARACT EXTRACAP,INSERT LENS Right 2018 Family History FAMILY HISTORY Problem Relation Age of Onset Diabetes Mother Hypertension Mother Prostate Cancer Father 70 No Known Problems Sister No Known Problems Sister No Known Problems Brother No Known Problems Daughter Migraines Daughter Patient Allergies ALLERGIES Allergen Reactions Clarithromycin Diarrhea Lipitor [Atorvastat* Intolerance Aches, fatigue Current Medications Current Outpatient Medications on File Prior to Visit Medication Sig irbesartan (AVAPRO) 150 mg tablet Take 1 tablet by mouth once daily. tamsulosin (FLOMAX) 0.4 mg Take 2 capsules by mouth daily at bedtime. metFORMIN (GLUCOPHAGE) 500 mg tablet Take 1 tablet by mouth two times a day with meals. lamoTRIgine (LAMICTAL) 25 mg tablet Take 25 mg by mouth once daily. busPIRone (BUSPAR) 5 mg tablet Take 5 mg by mouth three times daily. Cholecalciferol, Vitamin D3, 50 mcg (2,000 unit) cap Take 1 capsule by mouth once daily. cetirizine (ZYRTEC) 10 mg tablet Take 10 mg by mouth once daily. BIPAP Initiate BiPAP @ cm of water with humidification. Mask (per patient preference) optional chin strap (if indicated) , filters, tubing, humidifier and lifetime supplies. sertraline (ZOLOFT) 100 mg tablet Take 1 tablet by mouth once daily. (Patient taking differently: Take 100 mg by mouth once daily. Take 150mg daily) traZODone (DESYREL) 50 mg tablet Take 1 tablet by mouth daily at bedtime. multivit-minerals/folic acid (MEN'S MULTIVITAMIN GUMMIES ORAL) Take 2 Each by mouth once daily. No current facility-administered medications on file prior to visit. Social History Social History Tobacco Use Smoking status: Never Smokeless tobacco: Never Vaping Use Vaping Use: Never used Substance Use Topics Alcohol use: Yes Comment: 1-2 drinks per month Drug use: Never Review of Symptoms REVIEW OF SYSTEMS See HPI EXAM: BP 134/82 Pulse 90 Temp 36.7 ?C (98.1 ?F) Resp 16 Wt (!) 156.7 kg (345 lb 6.4 oz) SpO2 98% BMI 47.82 kg/m? General Appearance: Well appearing, alert, in no acute distress, well-hydrated, well nourished.. Skin: Skin color, texture, turgor normal, no suspicious rashes or lesions. Abdomen: Soft, NT, ND +BS. No CVA tenderness. Genitalia: Penis normal. No urethral discharge. Scrotum normal to palpation. No hernia. Positive cremasteric reflex bilaterally. Health Maintenance List Hepatitis B Vaccine(1 of 3 - 3-dose series) Never done Colorectal Cancer Screening Never done BP Controlled (<130/80) due on 01/10/2022 Covid-19 Vaccine( season) due on 11/13/2022 Depression Assessment due on 03/15/2023 Annual PCP Team Chronic Disease Visit due on 12/02/2023 Diabetes Screening due on 03/11/2026 Prostate Cancer Screening Discussion due on 12/23/2026 Lipid Screening due on 02/28/2027 DTaP,Tdap,Td Vaccine(2 - Td or Tdap) due on 10/16/2027 Influenza Vaccine Completed Hepatitis C Screening Completed HIV Screening Completed Shingrix Vaccine Completed Component Latest Ref Rng AND Units 03/24/2023 GLUCOSE UA (POCT) Negative mg/dL 100 (A) BILIRUBIN UA (POCT) Negative Negative KETONE UA (POCT) Negative mg/dL Negative SPECIFIC GRAVITY UA (POCT) 1.005 - 1.030 1.020 HEMOGLOBIN/BLOOD UA (POCT) Negative Trace-intact ( (more content not included)... Peoples [facility] 01-28-2023 Miscellaneous Notes CHRISTOPHER-12/01/22 Labs-02/28/22 NOV-06/01/23 Radha Galicia LPN documented in this encounter [facility] 12-15-2022 Note HNO ID: [id number] Author: Earlene Acuna APRN.WAQAR Service: ? Author Type: Nurse Practitioner Type: Progress Notes Filed: 12/15/2022 7:00 PM Note Text: This note was created using Zyncdriter. Subjective Mary Jo Ordoñez is a 57 year old male. 57 year old male with PMH HTN, hyperlipidemia, CARY and anxiety presents with complaints of sinus problems. Acute onset 10 days ago +sinus pressure +cough +ear pressure +post nasal drainage +diarrhea Denies SOB or dyspnea Denies CP. Denies abdominal pain. Denies N/V/D Seen here on 12/10/22, negative COVID and flu Presents today with continued and worsening symptoms. The history is provided by the patient. No speech and language tutor was used. Sinus Problem This is a new problem. The current episode started 1 to 4 weeks ago. The problem occurs constantly. The problem has been gradually worsening. Associated symptoms include congestion, coughing, headaches and a sore throat. Pertinent negatives include no abdominal pain, anorexia, arthralgias, change in bowel habit, chest pain, chills, diaphoresis, fatigue, fever, joint swelling, myalgias, nausea, neck pain, numbness, rash, swollen glands, urinary symptoms, vertigo, visual change, vomiting or weakness. Nothing aggravates the symptoms. He has tried nothing for the symptoms. The treatment provided no relief. PAST MEDICAL HISTORY Diagnosis Date Allergic rhinitis BPH (benign prostatic hyperplasia) Cutaneous horn excised Depression Elevated LFTs 01/15/[address] 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 tamsulosin (FLOMAX) 0.4 mg Take 2 capsules by mouth daily at bedtime. irbesartan (AVAPRO) 150 mg tablet Take 1 tablet by mouth once daily. busPIRone (BUSPAR) 5 mg tablet Take 5 mg by mouth three times daily. Cholecalciferol, Vitamin D3, 50 mcg (2,000 unit) cap Take 1 capsule by mouth once daily. cetirizine (ZYRTEC) 10 mg tablet Take 10 mg by mouth once daily. BIPAP Initiate BiPAP @ cm of water with humidification. Mask (per patient preference) optional chin strap (if indicated) , filters, tubing, humidifier and lifetime supplies. sertraline (ZOLOFT) 100 mg tablet Take 1 tablet by mouth once daily. (Patient taking differently: Take 100 mg by mouth once daily. Take 150mg daily) traZODone (DESYREL) 50 mg tablet Take 1 tablet by mouth daily at bedtime. multivit-minerals/folic acid (MEN'S MULTIVITAMIN GUMMIES ORAL) Take 2 Each by mouth once daily. amoxicillin-clavulanic acid (AUGMENTIN) 875-125 mg per tablet Take 1 tablet by mouth two times a day for 7 days. metFORMIN (GLUCOPHAGE) 500 mg tablet Take 1 tablet by mouth twice daily with meals. FAMILY HISTORY Problem Relation Age of Onset Diabetes Mother Hypertension Mother Prostate Cancer Father 70 No Known Problems Sister No Known Problems Sister No Known Problems Brother No Known Problems Daughter Migraines Daughter Social History Tobacco Use Smoking status: Never Smokeless tobacco: Never Vaping Use Vaping Use: Never used Substance Use Topics Alcohol use: Yes Comment: 1-2 drinks per month Drug use: Never Review of Systems Constitutional: Negative for chills, diaphoresis, fatigue and fever. HENT: Positive for congestion, ear pain, postnasal drip, sinus pressure, sinus pain and sore throat. Negative for ear discharge. Eyes: Negative for photophobia, pain, discharge, redness, itching and visual disturbance. Respiratory: Positive for cough. Negative for apnea, choking and chest tightness. Cardiovascular: Negative for chest pain and leg swelling. Gastrointestinal: Negative for abdominal pain, anorexia, change in bowel habit, nausea and vomiting. Musculoskeletal: Negative for arthralgias, joint swelling, myalgias and neck pain. Skin: Negative for color change, pallor and rash. Allergic/Immunologic: Negative for environmental allergies, food allergies and immunocompromised state. Neurological: Positive for headaches. Negative for vertigo, weakness and numbness. Hematological: Negative for adenopathy. Does not bruise/bleed easily. Psychiatric/Behavioral: Negative for agitation and behavioral problems. Objective BP 124/84 Pulse 86 Temp 36.9 ?C (98.4 ?F) (Tympanic) Resp 16 Wt (!) 157.5 kg (347 lb 3.2 oz) SpO2 96% BMI 48.07 kg/m? Physical Exam Vitals and nursing note reviewed. Constitutional: (more content not included)... [facility] 12-15-2022 History of Presen t illness Narrative This note was created using Zyncdriter. Subjective Mary Jo Ordoñez is a 57 year old male. 57 year old male with PMH HTN, hyperlipidemia, CARY and anxiety presents with complaints of sinus problems. Acute onset 10 days ago +sinus pressure +cough +ear pressure +post nasal drainage +diarrhea Denies SOB or dyspnea Denies CP. Denies abdominal pain. Denies N/V/D Seen here on 12/10/22, negative COVID and flu Presents today with continued and worsening symptoms. The history is provided by the patient. No speech and language tutor was used. Sinus Problem This is a new problem. The current episode started 1 to 4 weeks ago. The problem occurs constantly. The problem has been gradually worsening. Associated symptoms include congestion, coughing, headaches and a sore throat. Pertinent negatives include no abdominal pain, anorexia, arthralgias, change in bowel habit, chest pain, chills, diaphoresis, fatigue, fever, joint swelling, myalgias, nausea, neck pain, numbness, rash, swollen glands, urinary symptoms, vertigo, visual change, vomiting or weakness. Nothing aggravates the symptoms. He has tried nothing for the symptoms. The treatment provided no relief. PAST MEDICAL HISTORY Diagnosis Date Allergic rhinitis BPH (benign prostatic hyperplasia) Cutaneous horn excised Depression Elevated LFTs 01/15/[address] 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 tamsulosin (FLOMAX) 0.4 mg Take 2 capsules by mouth daily at bedtime. irbesartan (AVAPRO) 150 mg tablet Take 1 tablet by mouth once daily. busPIRone (BUSPAR) 5 mg tablet Take 5 mg by mouth three times daily. Cholecalciferol, Vitamin D3, 50 mcg (2,000 unit) cap Take 1 capsule by mouth once daily. cetirizine (ZYRTEC) 10 mg tablet Take 10 mg by mouth once daily. BIPAP Initiate BiPAP @ cm of water with humidification. Mask (per patient preference) optional chin strap (if indicated) , filters, tubing, humidifier and lifetime supplies. sertraline (ZOLOFT) 100 mg tablet Take 1 tablet by mouth once daily. (Patient taking differently: Take 100 mg by mouth once daily. Take 150mg daily) traZODone (DESYREL) 50 mg tablet Take 1 tablet by mouth daily at bedtime. multivit-minerals/folic acid (MEN'S MULTIVITAMIN GUMMIES ORAL) Take 2 Each by mouth once daily. amoxicillin-clavulanic acid (AUGMENTIN) 875-125 mg per tablet Take 1 tablet by mouth two times a day for 7 days. metFORMIN (GLUCOPHAGE) 500 mg tablet Take 1 tablet by mouth twice daily with meals. FAMILY HISTORY Problem Relation Age of Onset Diabetes Mother Hypertension Mother Prostate Cancer Father 70 No Known Problems Sister No Known Problems Sister No Known Problems Brother No Known Problems Daughter Migraines Daughter Social History Tobacco Use Smoking status: Never Smokeless tobacco: Never Vaping Use Vaping Use: Never used Substance Use Topics Alcohol use: Yes Comment: 1-2 drinks per month Drug use: Never Review of Systems Constitutional: Negative for chills, diaphoresis, fatigue and fever. HENT: Positive for congestion, ear pain, postnasal drip, sinus pressure, sinus pain and sore throat. Negative for ear discharge. Eyes: Negative for photophobia, pain, discharge, redness, itching and visual disturbance. Respiratory: Positive for cough. Negative for apnea, choking and chest tightness. Cardiovascular: Negative for chest pain and leg swelling. Gastrointestinal: Negative for abdominal pain, anorexia, change in bowel habit, nausea and vomiting. Musculoskeletal: Negative for arthralgias, joint swelling, myalgias and neck pain. Skin: Negative for color change, pallor and rash. Allergic/Immunologic: Negative for environmental allergies, food allergies and immunocompromised state. Neurological: Positive for headaches. Negative for vertigo, weakness and numbness. Hematological: Negative for adenopathy. Does not bruise/bleed easily. Psychiatric/Behavioral: Negative for agitation and behavioral problems. Objective BP 124/84 Pulse 86 Temp 36.9 C (98.4 F) (Tympanic) Resp 16 Wt (!) 157.5 kg (347 lb 3.2 oz) SpO2 96% BMI 48.07 kg/m Physical Exam Vitals and nursing note reviewed. Constitutional: General: He is not in acute distress. Appearance: Normal appearance. He is not ill-appearing, toxic-appearing or diaphoretic. HENT: Head: Normocephalic and atraumatic. Comments: +sinus pressure +maxillary sinus pressure Right Ear: External ear normal. Left Ear: External ear normal. Ears: Comments: Bilateral TM's erythematous Nose: Nose normal. No congestion or rhinorrhea. Mouth/Throat: Mouth: Mucous membranes are moist. Pharynx: Oropharynx is clear. Posterior oropharyngeal erythema present. No oropharyngeal exudate. Eyes: General: Right eye: No discharge. Left eye: No discharge. Extraocular Movements: Extraocular movements intact. Conjunctiva/sclera: Conjunctivae normal. Pupils: Pupils are equal, round, and reactive to light. Cardiovascular: Rate and Rhythm: Normal rate and regular rhythm. Pulses: Normal pulses. Heart sounds: Normal heart sounds. No murmur heard. No friction rub. No gallop. Pulmonary: Effort: Pulmonary effort is normal. No respiratory distress. Breath sounds: Normal breath sounds. No stridor. No wheezing, rhonchi or rales. Chest: Chest wall: No tenderness. Abdominal: General: Abdomen is flat. There is no distension. Palpations: Abdomen is soft. There is no mass. Tenderness: There is no abdominal tenderness. There is no guarding or rebound. Hernia: No hernia is present. Musculoskeletal: General: No swelling, tenderness, deformity or signs of injury. Normal range of motion. Cervical back: Normal range of motion and neck supple. No rigidity or tenderness. Right lower leg: No edema. Left lower leg: No edema. Lymphadenopathy: Cervical: No cervical adenopathy. Skin: General: Skin is warm and dry. Capillary Refill: Capillary refill takes less than 2 seconds. Coloration: Skin is not jaundiced or pale. Findings: No bruising, lesion or rash. Neurological: General: No focal deficit present. Mental Status: He is alert and oriented to person, place, and time. Cranial Nerves: No cranial nerve deficit. Sensory: No sensory deficit. Motor: No weakness. Coordination: Coordination normal. Gait: Gait normal. Deep Tendon Reflexes: Reflexes normal. Psychiatric: Mood and Affect: Mood normal. Behavior: Behavior normal. Thought Content: Thought content normal. Assessment and Plan ASSESSMENT/PLAN: 1. Rhinosinusitis - ICD9: 473.9, ICD10: J32.9 X 10 days - Will begin treatment with as per antibiotic as written, see orders - The patient should also be given OTC cough and cold meds as needed, warm salt water gargles, throat lozenges and/or OTC throat spray as needed, and nasal saline gtts and suction prn for the first 5-7 days of treatment. - Supportive care with plenty of fluids, rest, and analgesia prn. - Follow up in 3-5 days if symptoms persist or worsen. Earlene Acuna APRN.[employer] documented in this encounter [facility] 12-10-2022 Note HNO ID: [id number] Author: Johnie Angel APRN.WAQAR Service: ? Author Type: Nurse Practitioner Type: Progress Notes Filed: 12/10/2022 9:51 AM Note Text: Subjective HPI Nontoxic-appearing male presents urgent care chief complaint possible sinus infection. Duration of symptoms 5 days. Associated symptoms fatigue nasal congestion cough sore throat runny nose sinus pressure loose stools. Most prominent symptom today is sinus pressure. No known sick contacts. No pain. Tylenol for symptom management good success. Denies any fever body aches chills productive cough chest pain shortness of breath pleuritic pain hemoptysis nausea vomiting abdominal pain change or rash. Past medical history prescription medication use and allergies reviewed. .Patient presents with: Cough: Head congestion, runny nose, diarrhea x5 days PAST MEDICAL HISTORY Diagnosis Date Allergic rhinitis BPH (benign prostatic hyperplasia) Cutaneous horn excised Depression Elevated LFTs 01/15/[address] Carias in [place] Hypertension Impaired fasting glucose Malignant melanoma of left external auricular canal (HCC) 2020 [employer] Mixed hyperlipidemia Morbid obesity (HCC) CARY treated with BiPAP Traumatic cataract of right eye Vitamin D insufficiency PAST SURGICAL HISTORY Procedure Laterality Date COLONOSCOPY 2018 repeat in 5 years PAST SURGICAL HISTORY OF Left 2020 melanoma excision, ear REMV CATARACT EXTRACAP,INSERT LENS Right 2018 ALLERGIES Clarithromycin and Lipitor [Atorvastatin] MEDICATIONS lamoTRIgine (LAMICTAL) 25 mg tablet Take 25 mg by mouth once daily. tamsulosin (FLOMAX) 0.4 mg Take 2 capsules by mouth daily at bedtime. irbesartan (AVAPRO) 150 mg tablet Take 1 tablet by mouth once daily. metFORMIN (GLUCOPHAGE) 500 mg tablet Take 1 tablet by mouth twice daily with meals. busPIRone (BUSPAR) 5 mg tablet Take 5 mg by mouth three times daily. Cholecalciferol, Vitamin D3, 50 mcg (2,000 unit) cap Take 1 capsule by mouth once daily. cetirizine (ZYRTEC) 10 mg tablet Take 10 mg by mouth once daily. BIPAP Initiate BiPAP @ cm of water with humidification. Mask (per patient preference) optional chin strap (if indicated) , filters, tubing, humidifier and lifetime supplies. sertraline (ZOLOFT) 100 mg tablet Take 1 tablet by mouth once daily. (Patient taking differently: Take 100 mg by mouth once daily. Take 150mg daily) traZODone (DESYREL) 50 mg tablet Take 1 tablet by mouth daily at bedtime. multivit-minerals/folic acid (MEN'S MULTIVITAMIN GUMMIES ORAL) Take 2 Each by mouth once daily. FAMILY HISTORY Problem Relation Age of Onset Diabetes Mother Hypertension Mother Prostate Cancer Father 70 No Known Problems Sister No Known Problems Sister No Known Problems Brother No Known Problems Daughter Migraines Daughter Social History Tobacco Use Smoking status: Never Smokeless tobacco: Never Vaping Use Vaping Use: Never used Substance Use Topics Alcohol use: Yes Comment: 1-2 drinks per month Drug use: Never BP 116/74 Pulse 78 Temp 36.8 ?C (98.3 ?F) Resp 20 Wt (!) 156.7 kg (345 lb 6.4 oz) SpO2 97% BMI 47.82 kg/m? Review of Systems Constitutional: Positive for malaise/fatigue. Negative for chills and fever. HENT: Positive for congestion, sinus pain and sore throat. Negative for ear discharge and ear pain. Eyes: Negative for blurred vision, pain, discharge and redness. Respiratory: Positive for cough. Negative for hemoptysis, sputum production, shortness of breath, wheezing and stridor. Cardiovascular: Negative for chest pain. Gastrointestinal: Positive for diarrhea. Negative for abdominal pain, nausea and vomiting. Musculoskeletal: Positive for myalgias. Skin: Negative for itching and rash. Neurological: Negative for dizziness and headaches. Objective Physical Exam Constitutional: General: He is not in acute distress. Appearance: He is not diaphoretic. HENT: Head: Normocephalic. Jaw: No trismus, tenderness, swelling or pain on movement. Right Ear: Tympanic membrane, ear canal and external ear normal. Left Ear: Tympanic membrane, ear canal and external ear normal. Nose: Congestion present. Right Sinus: Maxillary sinus tenderness present. Left Sinus: Maxillary sinus tenderness present. Mouth/Throat: Mouth: Mucous membranes are moist. Pharynx: Oropharynx is clear. Uvula midline. No pharyngeal swelling, oropharyngeal exudate, posterior oropharyngeal erythema or uvula swelling. Eyes: Conjunctiva/sclera: Conjunctivae normal. Pupils: Pupils are equal, round, and reactive to light. Cardiovascular: Rate and Rhythm: Normal rate and regular rhythm. Heart sounds: Normal heart sounds. Pulmonary: Effort: Pulmonary effort is normal. No tachypnea, accessory muscle usage or respiratory distress. Breath sounds: Normal breath sounds. No stridor. No wheezing, rhonchi or rales. Abdom (more content not included)... [facility] 12-01-2022 Note HNO ID: [id number] Author: Debora Demarco MD Service: ? Author Type: Physician Type: Progress Notes Filed: 12/07/2022 8:26 PM Note Text: Chief Complaint Patient presents with: Follow Up: 6 month HPI Mary Jo Ordoñez is a 57 year old male who presents here today for Above Complaints. BPH: Patient states that he has been urinating more often in the morning without getting much out for the last 1-2 months. Admits to weak stream with occasional dribbling. Denies dysuria, hematuria, straining, nocturia >1 time per night. Taking flomax as prescribed without side effects. Prediabetes: Overdue for A1c. Taking Metformin BID as prescribed without side effects. Not checking sugars. 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 Denies polydipsia, polyphagia, vision changes. Anxiety and depression well controlled on regimen through psychiatry in [place]. Following up once 3 months. Not seeing counseling at this time. CARY: using Bipap on a nightly basis, but does not seem like his settings are working well for him. Managed by Dr. Darnell and has f/u later this year with their office. Past medical history, appointments, medications, allergies reviewed. Previous Medical History PAST MEDICAL HISTORY Diagnosis Date Allergic rhinitis BPH (benign prostatic hyperplasia) Cutaneous horn excised Depression Elevated LFTs 01/15/[address] aCrias in [place] Hypertension Impaired fasting glucose Malignant melanoma of left external auricular canal (HCC) 2020 [employer] Mixed hyperlipidemia Morbid obesity (HCC) CARY treated with BiPAP Traumatic cataract of right eye Vitamin D insufficiency Previous Surgical History PAST SURGICAL HISTORY Procedure Laterality Date COLONOSCOPY 2018 repeat in 5 years PAST SURGICAL HISTORY OF Left 2020 melanoma excision, ear REMV CATARACT EXTRACAP,INSERT LENS Right 2018 Family History FAMILY HISTORY Problem Relation Age of Onset Diabetes Mother Hypertension Mother Prostate Cancer Father 70 No Known Problems Sister No Known Problems Sister No Known Problems Brother No Known Problems Daughter Migraines Daughter Patient Allergies ALLERGIES Allergen Reactions Clarithromycin Diarrhea Lipitor [Atorvastat* Intolerance Aches, fatigue Current Medications Current Outpatient Medications on File Prior to Visit Medication Sig lamoTRIgine (LAMICTAL) 25 mg tablet Take 25 mg by mouth once daily. tamsulosin (FLOMAX) 0.4 mg Take 1 capsule by mouth daily at bedtime. irbesartan (AVAPRO) 150 mg tablet Take 1 tablet by mouth once daily. busPIRone (BUSPAR) 5 mg tablet Take 5 mg by mouth three times daily. Cholecalciferol, Vitamin D3, 50 mcg (2,000 unit) cap Take 1 capsule by mouth once daily. cetirizine (ZYRTEC) 10 mg tablet Take 10 mg by mouth once daily. BIPAP Initiate BiPAP @ cm of water with humidification. Mask (per patient preference) optional chin strap (if indicated) , filters, tubing, humidifier and lifetime supplies. sertraline (ZOLOFT) 100 mg tablet Take 1 tablet by mouth once daily. (Patient taking differently: Take 100 mg by mouth once daily. Take 150mg daily) traZODone (DESYREL) 50 mg tablet Take 1 tablet by mouth daily at bedtime. multivit-minerals/folic acid (MEN'S MULTIVITAMIN GUMMIES ORAL) Take 2 Each by mouth once daily. metFORMIN (GLUCOPHAGE) 500 mg tablet Take 1 tablet by mouth twice daily with meals. No current facility-administered medications on file prior to visit. Social History Social History Tobacco Use Smoking status: Never Smokeless tobacco: Never Vaping Use Vaping Use: Never used Substance Use Topics Alcohol use: Yes Comment: 1-2 drinks per month Drug use: Never Review of Symptoms REVIEW OF SYSTEMS GENERAL: No weight loss, malaise or fevers RESPIRATORY: Negative for cough, hemoptysis, wheezing, COPD, dyspnea or shortness of breath CARDIOVASCULAR: Negative for chest pain, leg swelling, hypertension, CHF or palpitations GI: No nausea, vomiting, or diarrhea SKIN: Negative for lesions, rash, and itching EXAM: BP 116/76 Pulse 75 Resp 18 Wt (!) 156.7 kg (345 lb 6.4 oz) SpO2 97% BMI 47.82 kg/m? General Appearance: Well appearing, alert, in no acute distress, well-hydrated, well nourished.. Skin: Skin color, texture, turgor normal, no suspicious rashes or lesions. Lungs: Lungs clear to auscultation. No wheezing, rhonchi, rales.. Heart: RRR without murmur, gallop, or rubs. No ectopy. Abdomen: Normal abdominal exam, Abdomen soft, non-tender. Bowel sounds normal. No masses, organomegaly. Extremities: No deformities, edema, skin discoloration, clubbing or cyanosis. Good capillary refill. . Health Maintenance List Colorectal Cancer Screening Never done BP Controlled (<130/80) due on 01/10/2022 Depression Assessment due on 03/15/2022 Influenza Vaccine(1) due on 11/13/2022 Hepatitis B Vaccine(1 of 3 - 3-dose series) (more content not included)... [facility] 12-01-2022 History of Presen t illness Narrative Chief Complaint Patient presents with: Follow Up: 6 month HPI Mary Jo Ordoñez is a 57 year old male who presents here today for Above Complaints. BPH: Patient states that he has been urinating more often in the morning without getting much out for the last 1-2 months. Admits to weak stream with occasional dribbling. Denies dysuria, hematuria, straining, nocturia >1 time per night. Taking flomax as prescribed without side effects. Prediabetes: Overdue for A1c. Taking Metformin BID as prescribed without side effects. Not checking sugars. 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 Denies polydipsia, polyphagia, vision changes. Anxiety and depression well controlled on regimen through psychiatry in [place]. Following up once 3 months. Not seeing counseling at this time. CARY: using Bipap on a nightly basis, but does not seem like his settings are working well for him. Managed by Dr. Darnell and has f/u later this year with their office. Past medical history, appointments, medications, allergies reviewed. Previous Medical History PAST MEDICAL HISTORY Diagnosis Date Allergic rhinitis BPH (benign prostatic hyperplasia) Cutaneous horn excised Depression Elevated LFTs 01/15/[address] Carias in [place] Hypertension Impaired fasting glucose Malignant melanoma of left external auricular canal (HCC) 2020 [employer] Mixed hyperlipidemia Morbid obesity (HCC) CARY treated with BiPAP Traumatic cataract of right eye Vitamin D insufficiency Previous Surgical History PAST SURGICAL HISTORY Procedure Laterality Date COLONOSCOPY 2019 repeat in 5 years PAST SURGICAL HISTORY OF Left 2020 melanoma excision, ear REMV CATARACT EXTRACAP,INSERT LENS Right 2018 Family History FAMILY HISTORY Problem Relation Age of Onset Diabetes Mother Hypertension Mother Prostate Cancer Father 70 No Known Problems Sister No Known Problems Sister No Known Problems Brother No Known Problems Daughter Migraines Daughter Patient Allergies ALLERGIES Allergen Reactions Clarithromycin Diarrhea Lipitor [Atorvastat* Intolerance Aches, fatigue Current Medications Current Outpatient Medications on File Prior to Visit Medication Sig lamoTRIgine (LAMICTAL) 25 mg tablet Take 25 mg by mouth once daily. tamsulosin (FLOMAX) 0.4 mg Take 1 capsule by mouth daily at bedtime. irbesartan (AVAPRO) 150 mg tablet Take 1 tablet by mouth once daily. busPIRone (BUSPAR) 5 mg tablet Take 5 mg by mouth three times daily. Cholecalciferol, Vitamin D3, 50 mcg (2,000 unit) cap Take 1 capsule by mouth once daily. cetirizine (ZYRTEC) 10 mg tablet Take 10 mg by mouth once daily. BIPAP Initiate BiPAP @ cm of water with humidification. Mask (per patient preference) optional chin strap (if indicated) , filters, tubing, humidifier and lifetime supplies. sertraline (ZOLOFT) 100 mg tablet Take 1 tablet by mouth once daily. (Patient taking differently: Take 100 mg by mouth once daily. Take 150mg daily) traZODone (DESYREL) 50 mg tablet Take 1 tablet by mouth daily at bedtime. multivit-minerals/folic acid (MEN'S MULTIVITAMIN GUMMIES ORAL) Take 2 Each by mouth once daily. metFORMIN (GLUCOPHAGE) 500 mg tablet Take 1 tablet by mouth twice daily with meals. No current facility-administered medications on file prior to visit. Social History Social History Tobacco Use Smoking status: Never Smokeless tobacco: Never Vaping Use Vaping Use: Never used Substance Use Topics Alcohol use: Yes Comment: 1-2 drinks per month Drug use: Never Review of Symptoms REVIEW OF SYSTEMS GENERAL: No weight loss, malaise or fevers RESPIRATORY: Negative for cough, hemoptysis, wheezing, COPD, dyspnea or shortness of breath CARDIOVASCULAR: Negative for chest pain, leg swelling, hypertension, CHF or palpitations GI: No nausea, vomiting, or diarrhea SKIN: Negative for lesions, rash, and itching EXAM: BP 116/76 Pulse 75 Resp 18 Wt (!) 156.7 kg (345 lb 6.4 oz) SpO2 97% BMI 47.82 kg/m General Appearance: Well appearing, alert, in no acute distress, well-hydrated, well nourished.. Skin: Skin color, texture, turgor normal, no suspicious rashes or lesions. Lungs: Lungs clear to auscultation. No wheezing, rhonchi, rales.. Heart: RRR without murmur, gallop, or rubs. No ectopy. Abdomen: Normal abdominal exam, Abdomen soft, non-tender. Bowel sounds normal. No masses, organomegaly. Extremities: No deformities, edema, skin discoloration, clubbing or cyanosis. Good capillary refill. . Health Maintenance List Colorectal Cancer Screening Never done BP Controlled (<130/80) due on 01/10/2022 Depression Assessment due on 03/15/2022 Influenza Vaccine(1) due on 11/13/2022 Hepatitis B Vaccine(1 of 3 - 3-dose series) due on 02/24/2023 Annual PCP Team Chronic Disease Visit due on 05/27/2023 Diabetes Screening due on 02/28/2025 Prostate Cancer Screening Discussion due on 12/23/2026 Lipid Screening due on 02/28/2027 DTaP,Tdap,Td Vaccine(2 - Td or Tdap) due on 10/16/2027 Hepatitis C Screening Completed HIV Screening Completed Shingrix Vaccine Completed Covid-19 Vaccine Completed Data reviewed Component Latest Ref Rng & Units 12/23/2021 02/28/2022 WBC 3.70 - 11.00 k/uL 8.43 RBC 4.20 - 6.00 m/uL 5.14 Hemoglobin 13.0 - 17.0 g/dL 15.8 Hematocrit 39.0 - 51.0 % 46.9 MCV 80.0 - 100.0 fL 91.2 MCH 26.0 - 34.0 pg 30.7 MCHC 30.5 - 36.0 g/dL 33.7 RDW-CV 11.5 - 15.0 % 13.2 Platelet Count 150 - 400 k/uL 263 MPV 9.0 - 12.7 fL 10.7 Neut% % 50.1 Abs Neut (ANC) 1.45 - 7.50 k/uL 4.23 Lymph% % 39.1 Abs Lymph 1.00 - 4.00 k/uL 3.30 [place]% % 7.5 Abs [place] <0.87 k/uL 0.63 Eosin% % 1.8 Abs Eosin <0.46 k/uL 0.15 Baso% % 1.1 Abs Baso <0.11 k/uL 0.09 Immature Gran % % 0.4 IMMATURE GRANS (ABS) <0.10 k/uL 0.03 NRBC /100 WBC 0.0 Absolute nRBC <0.01 k/uL <0.01 DTYPE Auto Protein, Total 6.3 - 8.0 g/dL 7.5 7.2 Albumin 3.9 - 4.9 g/dL 4.5 4.3 Calcium 8.5 - 10.2 mg/dL 9.8 10.0 Bilirubin, Total 0.2 - 1.3 mg/dL 0.3 0.4 Alkaline Phosphatase 38 - 113 U/L 71 76 AST 14 - 40 U/L 54 (H) 38 ALT 10 - 54 U/L 63 (H) 47 Glucose 74 - 99 mg/dL 216 (H) 114 (H) BUN 9 - 24 mg/dL 17 17 Creatinine 0.73 - 1.22 mg/dL 0.87 0.94 Sodium 136 - 144 mmol/L 137 137 Potassium 3.7 - 5.1 mmol/L 4.1 4.3 Chloride 97 - 105 mmol/L 101 101 CO2 22 - 30 mmol/L 22 22 Anion Gap 9 - 18 mmol/L 14 14 eGFR >=60 mL/min/1.73m 103 96 Total Cholesterol, Nonfasting <200 mg/dL 200 (H) Triglycerides, Nonfasting <150 mg/dL 199 (H) HDL Cholesterol, Nonfasting >39 mg/dL 37 (L) LDL Cholesterol, Nonfasting <100 mg/dL 123 (H) Non HDL Cholesterol, Nonfasting <130 mg/dL 163 (H) VLDL Cholesterol, Nonfasting <30 mg/dL 40 (H) Total Chol/HDL Ratio, Nonfasting <5.10 mg/dL 5.41 (H) LDL/HDL Ratio, Nonfasting <2.54 mg/dL 3.32 (H) HIV 12 Combo (Ag/Ab) Nonreactive Nonreactive HIV 1/2 Ab HIV Interpretation Hemoglobin A1C 4.3 - 5.6 % 5.9 (H) Estimated Average Glucose mg/dL 123 PSA Screening <2.60 ng/mL 0.77 TSH 0.270 - 4.200 mIU/L 2.310 Vitamin D 25 Hydroxy 31.0 - 80.0 ng/mL 25.6 (L) The 10-year ASCVD risk score (Roger DK, et al., 2019) is: 7.2% Values used to calculate the score: Age: 57 years Sex: Male Is Non- : No Diabetic: No Tobacco smoker: No Systolic Blood Pressure: 116 mmHg Is BP treated: Yes HDL Cholesterol: 37 mg/dL Total Cholesterol: 200 mg/dL ASSESSMENT/PLAN: 1. Essential hypertension - ICD9: 401.9, ICD10: I10 (primary diagnosis) - Controlled - Continue current medications - Recommend home blood pressure monitoring, to bring results to next visit - Encouraged sodium restriction, DASH or Mediterranean diet - Recommend regular aerobic exercise 2. Prediabetes - ICD39: 790.29, ICD10: R73.03 Recheck labs. Continue low carb diet and current regimen. Will call with results. - HGB A1C - COMP METABOLIC PANEL 3. CARY treated with BiPAP - ICD9: 327.23, ICD10: G47.33 Symptoms uncontrolled on nightly Bipap. F/u with Dr. Darnell as scheduled. Work on weight loss with improved diet and exercise. 4. Mixed hyperlipidemia - ICD9: 272.2, ICD10: E78.2 - Uncontrolled - Counseled on healthy diet and regular exercise - Discussed need for and benefit of weight loss. BMI 47.82 kg/(m^2) - Follow up in 6 months, sooner should any other issues arise. 5. Benign prostatic hyperplasia with urinary frequency - ICD9: 600.01, 788.41, ICD10: N40.1, R35.0 Check UA. Increase flomax to 0.8 mg qhs. - URINALYSIS, WITH MICROSCOPIC - TAMSULOSIN 0.4 MG CAPSULE 6. Obesity, Class III, BMI 40-49.9 (morbid obesity) (HCC) - ICD9: 278.01, ICD10: E66.01 Weight increasing - Behavioral intervention - Referral to bariatric medicine. - [facility] 7. Need for vaccination - ICD9: V05.9, ICD10: Z23 - INFLUENZA VACCINE, AGE 6 MO - 64 YR, QUADRIVALENT (AFLURIA, FLULAVAL, FLUZONE) Debora Demarco MD documented in this encounter [facility] 09-22-2022 Miscellaneous Notes Patient has been identified by name and date of : Yes Requested Prescriptions Pending Prescriptions Disp Refills tamsulosin (FLOMAX) 0.4 mg 90 capsule 1 Sig: Take 1 capsule by mouth daily at bedtime. irbesartan (AVAPRO) 150 mg tablet 90 tablet 1 Sig: Take 1 tablet by mouth once daily. RX INSTRUCTIONS: Patient aware RX will be sent to pharmacy. No need to notify patient. Patient last office visit: 05/26/22 Patient next office visit: 12/01/22 Henrietta Manley MA documented in this encounter [facility] 05-26-2022 Note HNO ID: [id number] Author: Debora Demarco MD Service: ? Author Type: Physician Type: Progress Notes Filed: 05/26/2022 5:38 PM Note Text: Chief Complaint Patient presents with: F/U 3 Month HPI Mary Jo Ordoñez is a 56 year old male who presents here today for Above Complaints. Previous HPI: Patient following up with psychiatry in [place] about every 3-4 months for anxiety and depression. Started on Buspar at last appointment which has been helping with anxiety. Zoloft working well to control his depression. Denies side effects, SI/HI, panic symptoms. Trazodone working well to help with sleep. PHQ-2 / Depression screen He in the past two weeks denies having felt down, depressed, hopeless or with little interest or pleasure in doing things. CARY: using Bipap on a nightly basis. Waking up well rested. Denies daytime somnolence or snoring. A1c in prediabetic range on recent labs but his glucose was >200 which is consistent with DM. Denies polyuria, polyphagia, polydipsia, vision changes, neuropathy. BPH: taking flomax on a nightly basis. Symptoms improved on current regimen. Has nocturia 1-2 times per night. Denies dysuria, hematuria, incomplete emptying, weak stream, straining. BP well controlled on current regimen. Does not check BP at home. Denies HTN symptoms. Up to date on colon cancer screening in 2019, due for repeat in 5 years. Interim: Prediabetes: patient due for repeat A1c today. States that he has not been working on healthier diet or exercise. Has meal planning booklet at home which he has read through and understands. Taking metformin as prescribed without side effects. Denies polyuria, polyphagia, polydipsia, vision changes, neuropathy. Still using Bipap nightly which is working well for him. Taking 2,000 units daily of vitamin D OTC for insufficiency. Due for recheck. Anxiety/depression, BPH unchanged from last OV. Evaluated on 03/23 for lower back pain with sciatica and was treated with meloxicam and flexeril and referred to PT. States meds have not helped and he has not followed up with PT yet. Denies worsening pain or cauda equina symptoms today. Past medical history, appointments, medications, allergies reviewed. Previous Medical History PAST MEDICAL HISTORY Diagnosis Date Allergic rhinitis BPH (benign prostatic hyperplasia) Cutaneous horn excised Depression Elevated LFTs 01/15/[address] Carias in [place] Hypertension Impaired fasting glucose Malignant melanoma of left external auricular canal (HCC) 2020 [employer] Mixed hyperlipidemia Morbid obesity (HCC) CARY treated with BiPAP Traumatic cataract of right eye Vitamin D insufficiency Previous Surgical History PAST SURGICAL HISTORY Procedure Laterality Date COLONOSCOPY 2018 repeat in 5 years PAST SURGICAL HISTORY OF Left 2020 melanoma excision, ear REMV CATARACT EXTRACAP,INSERT LENS Right 2018 Family History FAMILY HISTORY Problem Relation Age of Onset Diabetes Mother Hypertension Mother Prostate Cancer Father 70 No Known Problems Sister No Known Problems Sister No Known Problems Brother No Known Problems Daughter Migraines Daughter Patient Allergies ALLERGIES Allergen Reactions Clarithromycin Diarrhea Lipitor [Atorvastat* Intolerance Aches, fatigue Current Medications Current Outpatient Medications on File Prior to Visit Medication Sig tamsulosin (FLOMAX) 0.4 mg Take 1 capsule by mouth daily at bedtime. irbesartan (AVAPRO) 150 mg tablet Take 1 tablet by mouth once daily. busPIRone (BUSPAR) 5 mg tablet Take 5 mg by mouth once daily. metFORMIN (GLUCOPHAGE) 500 mg tablet Take 1 tablet by mouth twice daily with meals. Cholecalciferol, Vitamin D3, 50 mcg (2,000 unit) cap Take 1 capsule by mouth once daily. cetirizine (ZYRTEC) 10 mg tablet Take 10 mg by mouth once daily. BIPAP Initiate BiPAP @ cm of water with humidification. Mask (per patient preference) optional chin strap (if indicated) , filters, tubing, humidifier and lifetime supplies. sertraline (ZOLOFT) 100 mg tablet Take 1 tablet by mouth once daily. (Patient taking differently: Take 100 mg by mouth once daily. Take 150mg daily) traZODone (DESYREL) 50 mg tablet Take 1 tablet by mouth daily at bedtime. multivit-minerals/folic acid (MEN'S MULTIVITAMIN GUMMIES ORAL) Take 2 Each by mouth once daily. No current facility-administered medications on file prior to visit. Social History Social History Tobacco Use Smoking status: Never Smokeless tobacco: Never Vaping Use Vaping Use: Never used Substance Use Topics Alcohol use: Yes Comment: 1-2 drinks per month Drug use: Never Review of Symptoms REVIEW OF SYSTEMS GENERAL: No weight loss, malaise or fevers RESPIRATORY: Negative for cough, hemoptysis, wheezing, COPD, dyspnea or shortness of breath CARDIOVASCULAR: Negative for chest pain, leg swelling, hypertensio (more content not included)... [facility] 05-26-2022 History of Presen t illness Narrative Chief Complaint Patient presents with: F/U 3 Month HPI Mary Jo Ordoñez is a 56 year old male who presents here today for Above Complaints. Previous HPI: Patient following up with psychiatry in [place] about every 3-4 months for anxiety and depression. Started on Buspar at last appointment which has been helping with anxiety. Zoloft working well to control his depression. Denies side effects, SI/HI, panic symptoms. Trazodone working well to help with sleep. PHQ-2 / Depression screen He in the past two weeks denies having felt down, depressed, hopeless or with little interest or pleasure in doing things. CARY: using Bipap on a nightly basis. Waking up well rested. Denies daytime somnolence or snoring. A1c in prediabetic range on recent labs but his glucose was >200 which is consistent with DM. Denies polyuria, polyphagia, polydipsia, vision changes, neuropathy. BPH: taking flomax on a nightly basis. Symptoms improved on current regimen. Has nocturia 1-2 times per night. Denies dysuria, hematuria, incomplete emptying, weak stream, straining. BP well controlled on current regimen. Does not check BP at home. Denies HTN symptoms. Up to date on colon cancer screening in 2019, due for repeat in 5 years. Interim: Prediabetes: patient due for repeat A1c today. States that he has not been working on healthier diet or exercise. Has meal planning booklet at home which he has read through and understands. Taking metformin as prescribed without side effects. Denies polyuria, polyphagia, polydipsia, vision changes, neuropathy. Still using Bipap nightly which is working well for him. Taking 2,000 units daily of vitamin D OTC for insufficiency. Due for recheck. Anxiety/depression, BPH unchanged from last OV. Evaluated on 03/23 for lower back pain with sciatica and was treated with meloxicam and flexeril and referred to PT. States meds have not helped and he has not followed up with PT yet. Denies worsening pain or cauda equina symptoms today. Past medical history, appointments, medications, allergies reviewed. Previous Medical History PAST MEDICAL HISTORY Diagnosis Date Allergic rhinitis BPH (benign prostatic hyperplasia) Cutaneous horn excised Depression Elevated LFTs 01/15/[address] Carias in [place] Hypertension Impaired fasting glucose Malignant melanoma of left external auricular canal (HCC) 2020 [employer] Mixed hyperlipidemia Morbid obesity (HCC) CARY treated with BiPAP Traumatic cataract of right eye Vitamin D insufficiency Previous Surgical History PAST SURGICAL HISTORY Procedure Laterality Date COLONOSCOPY 2018 repeat in 5 years PAST SURGICAL HISTORY OF Left 2020 melanoma excision, ear REMV CATARACT EXTRACAP,INSERT LENS Right 2018 Family History FAMILY HISTORY Problem Relation Age of Onset Diabetes Mother Hypertension Mother Prostate Cancer Father 70 No Known Problems Sister No Known Problems Sister No Known Problems Brother No Known Problems Daughter Migraines Daughter Patient Allergies ALLERGIES Allergen Reactions Clarithromycin Diarrhea Lipitor [Atorvastat* Intolerance Aches, fatigue Current Medications Current Outpatient Medications on File Prior to Visit Medication Sig tamsulosin (FLOMAX) 0.4 mg Take 1 capsule by mouth daily at bedtime. irbesartan (AVAPRO) 150 mg tablet Take 1 tablet by mouth once daily. busPIRone (BUSPAR) 5 mg tablet Take 5 mg by mouth once daily. metFORMIN (GLUCOPHAGE) 500 mg tablet Take 1 tablet by mouth twice daily with meals. Cholecalciferol, Vitamin D3, 50 mcg (2,000 unit) cap Take 1 capsule by mouth once daily. cetirizine (ZYRTEC) 10 mg tablet Take 10 mg by mouth once daily. BIPAP Initiate BiPAP @ cm of water with humidification. Mask (per patient preference) optional chin strap (if indicated) , filters, tubing, humidifier and lifetime supplies. sertraline (ZOLOFT) 100 mg tablet Take 1 tablet by mouth once daily. (Patient taking differently: Take 100 mg by mouth once daily. Take 150mg daily) traZODone (DESYREL) 50 mg tablet Take 1 tablet by mouth daily at bedtime. multivit-minerals/folic acid (MEN'S MULTIVITAMIN GUMMIES ORAL) Take 2 Each by mouth once daily. No current facility-administered medications on file prior to visit. Social History Social History Tobacco Use Smoking status: Never Smokeless tobacco: Never Vaping Use Vaping Use: Never used Substance Use Topics Alcohol use: Yes Comment: 1-2 drinks per month Drug use: Never Review of Symptoms REVIEW OF SYSTEMS GENERAL: No weight loss, malaise or fevers RESPIRATORY: Negative for cough, hemoptysis, wheezing, COPD, dyspnea or shortness of breath CARDIOVASCULAR: Negative for chest pain, leg swelling, hypertension, CHF or palpitations GI: No nausea, vomiting, or diarrhea SKIN: Negative for lesions, rash, and itching EXAM: BP 132/82 Pulse 77 Resp 18 Wt (!) 156.9 kg (346 lb) SpO2 96% BMI 47.91 kg/m General Appearance: Well appearing, alert, in no acute distress, well-hydrated, well nourished.. Skin: Skin color, texture, turgor normal, no suspicious rashes or lesions. Lungs: Lungs clear to auscultation. No wheezing, rhonchi, rales.. Heart: RRR without murmur, gallop, or rubs. No ectopy. Abdomen: Normal abdominal exam, Abdomen soft, non-tender. Bowel sounds normal. No masses, organomegaly. Extremities: No deformities, edema, skin discoloration, clubbing or cyanosis. Good capillary refill. . Health Maintenance List COLORECTAL CANCER SCREENING Never done DEPRESSION ASSESSMENT due on 03/15/2022 HEPATITIS B(1 of 3 - 3-dose series) due on 02/24/2023 ANNUAL PCP TEAM CHRONIC DISEASE VISIT due on 03/23/2023 BP CONTROLLED (<130/80) due on 03/23/2023 DIABETES SCREEN due on 02/28/2025 LIPID SCREEN due on 02/28/2027 DTAP,TDAP,TD(2 - Td or Tdap) due on 10/16/2027 INFLUENZA Completed HEPATITIS C SCREENING Completed HIV SCREENING Completed SHINGRIX VACCINE Completed COVID-19 VACCINE Completed Data reviewed Component Latest Ref Rng & Units 12/23/2021 02/28/2022 WBC 3.70 - 11.00 k/uL 8.43 RBC 4.20 - 6.00 m/uL 5.14 Hemoglobin 13.0 - 17.0 g/dL 15.8 Hematocrit 39.0 - 51.0 % 46.9 MCV 80.0 - 100.0 fL 91.2 MCH 26.0 - 34.0 pg 30.7 MCHC 30.5 - 36.0 g/dL 33.7 RDW-CV 11.5 - 15.0 % 13.2 Platelet Count 150 - 400 k/uL 263 MPV 9.0 - 12.7 fL 10.7 Neut% % 50.1 Abs Neut (ANC) 1.45 - 7.50 k/uL 4.23 Lymph% % 39.1 Abs Lymph 1.00 - 4.00 k/uL 3.30 [place]% % 7.5 Abs [place] <0.87 k/uL 0.63 Eosin% % 1.8 Abs Eosin <0.46 k/uL 0.15 Baso% % 1.1 Abs Baso <0.11 k/uL 0.09 Immature Gran % % 0.4 IMMATURE GRANS (ABS) <0.10 k/uL 0.03 NRBC /100 WBC 0.0 Absolute nRBC <0.01 k/uL <0.01 DTYPE Auto Protein, Total 6.3 - 8.0 g/dL 7.5 7.2 Albumin 3.9 - 4.9 g/dL 4.5 4.3 Calcium 8.5 - 10.2 mg/dL 9.8 10.0 Bilirubin, Total 0.2 - 1.3 mg/dL 0.3 0.4 Alkaline Phosphatase 38 - 113 U/L 71 76 AST 14 - 40 U/L 54 (H) 38 ALT 10 - 54 U/L 63 (H) 47 Glucose 74 - 99 mg/dL 216 (H) 114 (H) BUN 9 - 24 mg/dL 17 17 Creatinine 0.73 - 1.22 mg/dL 0.87 0.94 Sodium 136 - 144 mmol/L 137 137 Potassium 3.7 - 5.1 mmol/L 4.1 4.3 Chloride 97 - 105 mmol/L 101 101 CO2 22 - 30 mmol/L 22 22 Anion Gap 9 - 18 mmol/L 14 14 eGFR >=60 mL/min/1.73m 103 96 Total Cholesterol, Nonfasting <200 mg/dL 200 (H) Triglycerides, Nonfasting <150 mg/dL 199 (H) HDL Cholesterol, Nonfasting >39 mg/dL 37 (L) LDL Cholesterol, Nonfasting <100 mg/dL 123 (H) Non HDL Cholesterol, Nonfasting <130 mg/dL 163 (H) VLDL Cholesterol, Nonfasting <30 mg/dL 40 (H) Total Chol/HDL Ratio, Nonfasting <5.10 mg/dL 5.41 (H) LDL/HDL Ratio, Nonfasting <2.54 mg/dL 3.32 (H) HIV 12 Combo (Ag/Ab) Nonreactive Nonreactive HIV 1/2 Ab HIV Interpretation Hemoglobin A1C 4.3 - 5.6 % 5.9 (H) Estimated Average Glucose mg/dL 123 Hep B Surface Ab, Qual Positive Negative (A) Hep B Surf Ab Quant >=12.00 mIU/mL <8.00 (L) PSA Screening <2.60 ng/mL 0.77 TSH 0.270 - 4.200 mIU/L 2.310 Vitamin D 25 Hydroxy 31.0 - 80.0 ng/mL 25.6 (L) Hep C Antibody IA Negative Negative Hep B Surface Ag Negative Negative Hep B Core Ab, Total Negative Negative The 10-year ASCVD risk score (Roger DK, et al., 2019) is: 8.2% Values used to calculate the score: Age: 56 years Sex: Male Is Non- : No Diabetic: No Tobacco smoker: No Systolic Blood Pressure: 132 mmHg Is BP treated: Yes HDL Cholesterol: 37 mg/dL Total Cholesterol: 200 mg/dL ASSESSMENT/PLAN: 1. Prediabetes - ICD9: 790.29, ICD10: R73.03 (primary diagnosis) Symptoms stable. Recheck A1c and will call with results. Continue current regimen and discussed importance of low carb diet. - HGB A1C 2. Vitamin D insufficiency - ICD9: 268.9, ICD10: E55.9 Recheck vitamin D level after 2,000 unit daily supplement. 3. CARY treated with BiPAP - ICD9: 327.23, ICD10: G47.33 Controlled on Bipap 4. Primary hypertension - ICD9: 401.9, ICD10: I10 - good control - Continue current medication(s) - Encouraged dietary sodium restriction/DASH diet - Recommended regular aerobic exercise. - Reviewed risks of HTN and principles of treatment - Goal of BP <140/90 5. Benign prostatic hyperplasia with urinary frequency - ICD9: 600.01, 788.41, ICD10: N40.1, R35.0 Improved with current regimen. 6. Mixed hyperlipidemia - ICD9: 272.2, ICD10: E78.2 - poor control, intolerant to statin. - Encouraged following a low fat, low cholesterol diet. - Discussed the benefits of regular aerobic exercise and weight loss. -Recheck at future OV 7. Anxiety with depression - ICD9: 300.4, ICD10: F41.8 Controlled on current reigmen. 8. Acute left-sided low back pain with left-sided sciatica - ICD9: 724.2, 724.3, ICD10: M54.42 Unchanged. Needs to follow up with PT. Continue OTC analgesics, ice/heat, home exercises. If not improved with PT would have him return for further workup and imaging. Debora Demarco MD documented in this encounter [facility] 03-23-2022 History of Presen t illness Narrative Chief Complaint Patient presents with: Back Pain: Lower back x 3 weeks. Patient reports MRI last year showed DDD. AL Ordoñez is a 56 year old male who presents here today for Above Complaints. Patient complaining of bilateral lower back pain x3 weeks without fall or injury. Was shoveling light snow about 1-2 days before this started. Described as constant aching/burning pain, currently 5/10, with radiation down his left leg to his thigh. Exacerbated with twisting, bending, coughing/sneezing. Treating at home with rest, Advil, massage, cupping, and use of hot tub. Symptoms stable, but have localized more on his left lower back. Denies loss of bowel/bladder control, saddle anesthesia, weakness in LE. States that he had MRI of his lumbar spine last year through [facility] which showed mild DDD. Past medical history, appointments, medications, allergies reviewed. Previous Medical History PAST MEDICAL HISTORY Diagnosis Date Allergic rhinitis BPH (benign prostatic hyperplasia) Cutaneous horn excised Depression Elevated LFTs 01/15/[address] Carias in [place] Hypertension Impaired fasting glucose Malignant melanoma of left external auricular canal (HCC) 2020 [employer] Mixed hyperlipidemia Morbid obesity (HCC) CARY treated with BiPAP Traumatic cataract of right eye Vitamin D insufficiency Previous Surgical History PAST SURGICAL HISTORY Procedure Laterality Date COLONOSCOPY 2019 repeat in 5 years PAST SURGICAL HISTORY OF Left 2020 melanoma excision, ear REMV CATARACT EXTRACAP,INSERT LENS Right 2018 Family History FAMILY HISTORY Problem Relation Age of Onset Diabetes Mother Hypertension Mother Prostate Cancer Father 70 No Known Problems Sister No Known Problems Sister No Known Problems Brother No Known Problems Daughter Migraines Daughter Patient Allergies ALLERGIES Allergen Reactions Clarithromycin Diarrhea Lipitor [Atorvastat* Intolerance Aches, fatigue Current Medications Current Outpatient Medications on File Prior to Visit Medication Sig busPIRone (BUSPAR) 5 mg tablet Take 5 mg by mouth once daily. metFORMIN (GLUCOPHAGE) 500 mg tablet Take 1 tablet by mouth twice daily with meals. Cholecalciferol, Vitamin D3, 50 mcg (2,000 unit) cap Take 1 capsule by mouth once daily. irbesartan (AVAPRO) 150 mg tablet Take 1 tablet by mouth once daily. tamsulosin (FLOMAX) 0.4 mg Take 1 capsule by mouth daily at bedtime. cetirizine (ZYRTEC) 10 mg tablet Take 10 mg by mouth once daily. BIPAP Initiate BiPAP @ cm of water with humidification. Mask (per patient preference) optional chin strap (if indicated) , filters, tubing, humidifier and lifetime supplies. sertraline (ZOLOFT) 100 mg tablet Take 1 tablet by mouth once daily. traZODone (DESYREL) 50 mg tablet Take 1 tablet by mouth daily at bedtime. multivit-minerals/folic acid (MEN'S MULTIVITAMIN GUMMIES ORAL) Take 2 Each by mouth once daily. No current facility-administered medications on file prior to visit. Social History Social History Tobacco Use Smoking status: Never Smokeless tobacco: Never Vaping Use Vaping Use: Never used Substance Use Topics Alcohol use: Yes Comment: 1-2 drinks per month Drug use: Never Review of Symptoms REVIEW OF SYSTEMS See HPI EXAM: BP 118/76 Pulse 72 Resp 16 Wt (!) 157.1 kg (346 lb 6.4 oz) SpO2 96% BMI 47.96 kg/m General Appearance: Well appearing, alert, in no acute distress, well-hydrated, well nourished.. Skin: Skin color, texture, turgor normal, no suspicious rashes or lesions. Back:no pain to palpation of vertebrae, good flexion and extension, good range of motion, reflexes are 2+ and symmetric, motor and sensory appear to be normal, no evidence of scoliosis. Positive for TTP over left lumbar paraspinal muscles. Positive SLR on left. Health Maintenance List COLORECTAL CANCER SCREENING Never done DEPRESSION ASSESSMENT due on 03/15/2022 HEPATITIS B(1 of 3 - 3-dose series) due on 02/24/2023 ANNUAL PCP TEAM CHRONIC DISEASE VISIT due on 02/24/2023 BP CONTROLLED (<130/80) due on 02/24/2023 DIABETES SCREEN due on 02/28/2025 LIPID SCREEN due on 02/28/2027 DTAP,TDAP,TD(2 - Td or Tdap) due on 10/16/2027 INFLUENZA Completed HEPATITIS C SCREENING Completed HIV SCREENING Completed SHINGRIX VACCINE Completed COVID-19 VACCINE Completed ASSESSMENT/PLAN: 1. Acute left-sided low back pain with left-sided sciatica - ICD9: 724.2, 724.3, ICD10: M54.42 (primary diagnosis) Sciatica - Ice for localized tenderness - Warm moist heat for 20 min three times a day - NSAIDS- see orders - Muscle relaxant- see orders - PT consult - Patient given instructions use of medications as ordered, intermittent rest, back care exercise program, weight loss, improved posture, proper lifting techniques, and intermittent use of heat - MELOXICAM 15 MG TABLET - CYCLOBENZAPRINE 10 MG TABLET - CONSULT TO PHYSICAL THERAPY 2. Essential hypertension - ICD9: 401.9, ICD10: I10 - good control - Continue current medication(s) - Encouraged dietary sodium restriction/DASH diet - Recommended regular aerobic exercise. - Reviewed risks of HTN and principles of treatment - Goal of BP <140/90 - IRBESARTAN 150 MG TABLET Debora Demarco MD documented in this encounter [facility] 03-05-2022 Miscellaneous Notes Phoned patient and updated him with results. Patient voiced understanding and reports he will most likely schedule for Hep B vaccination. Please call patient and let him know his liver enzymes are back in normal range. No infection with hepatitis B or C. No immunity to hepatitis B if interested may get immunizations for hepatitis B. HIV negative. Total cholesterol, LDL ( bad cholesterol) and triglycerides borderline high. Recommend low fat diet and at least 150 minutes of exercise per week. The rest of his blood work is in acceptable ranges. Maria E Podlogar, NETWORK DESKTOP SUPPORT SPECIALIST.[employer] documented in this encounter [facility] 02-24-2022 History of Presen t illness Narrative Chief Complaint Patient presents with: Physical HPI Mary Jo Ordoñez is a 56 year old male who presents here today for annual physical. Has been in good health without hospitalizations or ER visits. Patient following up with psychiatry in [place] about every 3-4 months for anxiety and depression. Started on Buspar at last appointment which has been helping with anxiety. Zoloft working well to control his depression. Denies side effects, SI/HI, panic symptoms. Trazodone working well to help with sleep. PHQ-2 / Depression screen He in the past two weeks denies having felt down, depressed, hopeless or with little interest or pleasure in doing things. CARY: using Bipap on a nightly basis. Waking up well rested. Denies daytime somnolence or snoring. A1c in prediabetic range on recent labs but his glucose was >200 which is consistent with DM. Denies polyuria, polyphagia, polydipsia, vision changes, neuropathy. BPH: taking flomax on a nightly basis. Symptoms improved on current regimen. Has nocturia 1-2 times per night. Denies dysuria, hematuria, incomplete emptying, weak stream, straining. BP well controlled on current regimen. Does not check BP at home. Denies HTN symptoms. Up to date on colon cancer screening in 2019, due for repeat in 5 years. Past medical history, appointments, medications, allergies reviewed. Previous Medical History PAST MEDICAL HISTORY Diagnosis Date Allergic rhinitis Cutaneous horn excised Depression Elevated LFTs 01/15/2022 Hypertension Impaired fasting glucose Malignant melanoma of left external auricular canal (HCC) 2020 [employer] Agdaagux Mixed hyperlipidemia Morbid obesity (HCC) CARY treated with BiPAP Traumatic cataract of right eye Vitamin D insufficiency Previous Surgical History PAST SURGICAL HISTORY Procedure Laterality Date COLONOSCOPY 2019 repeat in 5 years PAST SURGICAL HISTORY OF Left 2020 melanoma excision, ear REMV CATARACT EXTRACAP,INSERT LENS Right 2018 Family History FAMILY HISTORY Problem Relation Age of Onset Diabetes Mother Hypertension Mother Prostate Cancer Father 70 No Known Problems Sister No Known Problems Sister No Known Problems Brother No Known Problems Daughter No Known Problems Daughter Patient Allergies ALLERGIES Allergen Reactions Clarithromycin Diarrhea Current Medications Current Outpatient Medications on File Prior to Visit Medication Sig busPIRone (BUSPAR) 5 mg tablet Take 5 mg by mouth once daily. irbesartan (AVAPRO) 150 mg tablet Take 1 tablet by mouth once daily. tamsulosin (FLOMAX) 0.4 mg Take 1 capsule by mouth daily at bedtime. cetirizine (ZYRTEC) 10 mg tablet Take 10 mg by mouth once daily. BIPAP Initiate BiPAP @ cm of water with humidification. Mask (per patient preference) optional chin strap (if indicated) , filters, tubing, humidifier and lifetime supplies. sertraline (ZOLOFT) 100 mg tablet Take 1 tablet by mouth once daily. traZODone (DESYREL) 50 mg tablet Take 1 tablet by mouth daily at bedtime. multivit-minerals/folic acid (MEN'S MULTIVITAMIN GUMMIES ORAL) Take 2 Each by mouth once daily. atorvastatin (LIPITOR) 20 mg tablet Take 1 tablet by mouth daily at bedtime. For cholesterol. (Patient not taking: Reported on 12/23/2021) No current facility-administered medications on file prior to visit. Social History Social History Tobacco Use Smoking status: Never Smokeless tobacco: Never Vaping Use Vaping Use: Never used Substance Use Topics Alcohol use: Yes Comment: 1-2 drinks per month Drug use: Never Review of Symptoms REVIEW OF SYSTEMS GENERAL: No weight loss, malaise or fevers HEENT: Negative for frequent or significant headaches, No changes in hearing or vision, no nose bleeds or other nasal problems NECK: Negative for lumps, goiter, pain and significant neck swelling RESPIRATORY: Negative for cough, hemoptysis, wheezing, COPD, dyspnea or shortness of breath CARDIOVASCULAR: Negative for chest pain, leg swelling, hypertension, CHF or palpitations GI: No nausea, vomiting, or diarrhea : No history of dysuria, frequency or incontinence MUSCULOSKELETAL: Negative for joint pain or swelling, back pain or muscle pain SKIN: Negative for lesions, rash, and itching EXAM: BP 120/72 Pulse 60 Resp 16 Ht 181 cm (5' 11.26 ) Wt (!) 158.3 kg (349 lb) SpO2 97% BMI 48.32 kg/m General Appearance: Well appearing, alert, in no acute distress, well-hydrated, well nourished. Morbidly obese. Skin: Skin color, texture, turgor normal, no suspicious rashes or lesions. Head: Normocephalic, no masses, lesions, tenderness or abnormalities. Eyes: Anicteric sclera. Pupils are equally round and reactive to light. Extraocular movements are intact. . Ears: External ears normal, canals clear. Oropharynx: Lips, mucosa, and tongue normal, teeth and gums normal, oropharynx normal. Neck: Supple, no adenopathy; thyroid symmetric, normal size, no bruits. Lungs: Lungs clear to auscultation. No wheezing, rhonchi, rales.. Heart: RRR without murmur, gallop, or rubs. No ectopy. Abdomen: Normal abdominal exam, Abdomen soft, non-tender. Bowel sounds normal. No masses, organomegaly. Extremities: No deformities, edema, skin discoloration, clubbing or cyanosis. Good capillary refill. . Health Maintenance List HEPATITIS B(1 of 3 - 3-dose series) Never done HEPATITIS C SCREENING Never done HIV SCREENING Never done COLORECTAL CANCER SCREENING Never done SHINGRIX VACCINE(2 of 2) due on 12/28/2020 DEPRESSION ASSESSMENT Never done BP CONTROLLED (<130/80) due on 01/10/2022 ANNUAL PCP TEAM CHRONIC DISEASE VISIT due on 12/23/2022 DIABETES SCREEN due on 12/23/2024 LIPID SCREEN due on 01/13/2026 DTAP,TDAP,TD(2 - Td or Tdap) due on 10/16/2027 INFLUENZA Completed COVID-19 VACCINE Completed Data reviewed Component Latest Ref Rng & Units 12/23/2021 WBC 3.70 - 11.00 k/uL 8.43 RBC 4.20 - 6.00 m/uL 5.14 Hemoglobin 13.0 - 17.0 g/dL 15.8 Hematocrit 39.0 - 51.0 % 46.9 MCV 80.0 - 100.0 fL 91.2 MCH 26.0 - 34.0 pg 30.7 MCHC 30.5 - 36.0 g/dL 33.7 RDW-CV 11.5 - 15.0 % 13.2 Platelet Count 150 - 400 k/uL 263 MPV 9.0 - 12.7 fL 10.7 Neut% % 50.1 Abs Neut (ANC) 1.45 - 7.50 k/uL 4.23 Lymph% % 39.1 Abs Lymph 1.00 - 4.00 k/uL 3.30 [place]% % 7.5 Abs [place] <0.87 k/uL 0.63 Eosin% % 1.8 Abs Eosin <0.46 k/uL 0.15 Baso% % 1.1 Abs Baso <0.11 k/uL 0.09 Immature Gran % % 0.4 IMMATURE GRANS (ABS) <0.10 k/uL 0.03 NRBC /100 WBC 0.0 Absolute nRBC <0.01 k/uL <0.01 DTYPE Auto Protein, Total 6.3 - 8.0 g/dL 7.5 Albumin 3.9 - 4.9 g/dL 4.5 Calcium 8.5 - 10.2 mg/dL 9.8 Bilirubin, Total 0.2 - 1.3 mg/dL 0.3 Alkaline Phosphatase 38 - 113 U/L 71 AST 14 - 40 U/L 54 (H) ALT 10 - 54 U/L 63 (H) Glucose 74 - 99 mg/dL 216 (H) BUN 9 - 24 mg/dL 17 Creatinine 0.73 - 1.22 mg/dL 0.87 Sodium 136 - 144 mmol/L 137 Potassium 3.7 - 5.1 mmol/L 4.1 Chloride 97 - 105 mmol/L 101 CO2 22 - 30 mmol/L 22 Anion Gap 9 - 18 mmol/L 14 eGFR >=60 mL/min/1.73m 103 Hemoglobin A1C 4.3 - 5.6 % 5.9 (H) Estimated Average Glucose mg/dL 123 PSA Screening <2.60 ng/mL 0.77 TSH 0.270 - 4.200 mIU/L 2.310 Vitamin D 25 Hydroxy 31.0 - 80.0 ng/mL 25.6 (L) ASSESSMENT/PLAN: 1. Annual physical exam - ICD9: V70.0, ICD10: Z00.00 (primary diagnosis) - Counseled on healthy diet and regular exercise - Discussed need for and benefit of weight loss. BMI 48.32 kg/(m^2) - Counseled on limiting alcohol intake to 2 drinks per day - Depression screening tool completed and reviewed with patient. Based on score and interview, patient is not at risk for depression and recommended no further intervention at this time. - Follow up for annual exam in one year 2. Prediabetes - ICD9: 790.29, ICD10: R73.03 Discussed A1c in predibetic range with non fasting glucose >200. High glucose is consistent with DM, but will continue to treat as prediabetes due to A1c of 5.9. Add metformin BID. Given booklets for home on meal planning and survival skills. Discussed importance of exercise and weight loss. Recheck in 3 months. - METFORMIN 500 MG TABLET 3. Anxiety with depression - ICD9: 300.4, ICD10: F41.8 Controlled on current regimen per psychiatry. 4. Elevated LFTs - ICD9: 790.6, ICD10: R79.89 recheck - COMP METABOLIC PANEL 5. Primary hypertension - ICD9: 401.9, ICD10: I10 - good control - Continue current medication(s) - Encouraged dietary sodium restriction/DASH diet - Recommended regular aerobic exercise. - Reviewed risks of HTN and principles of treatment - Goal of BP <140/90 6. CARY treated with BiPAP - ICD9: 327.23, ICD10: G47.33 Improved with Bipap. Continue nightly use. Discussed diet/exercise. 7. Mixed hyperlipidemia - ICD9: 272.2, ICD10: E78.2 - to be determined upon return of lab results - Encouraged following a low fat, low cholesterol diet. - Discussed the benefits of regular aerobic exercise and weight loss. 8. Morbid obesity (HCC) - ICD9: 278.01, ICD10: E66.01 Weight increasing - Behavioral intervention 9. Vitamin D insufficiency - ICD9: 268.9, ICD10: E55.9 Discussed use of 2,000 units of vitamin D daily OTC. Recheck in 3-6 months. 10. Screening for HIV (human immunodeficiency virus) - ICD9: V73.89, ICD10: Z11.4 - HIV 1 2 COMBO(AG/AB),WITH REFLEX TO DIFFERENTIATION 11. Encounter for hepatitis C screening test for low risk patient - ICD9: V73.89, ICD10: Z11.59 - HEP REMOTE PANEL BL 12. Benign prostatic hyperplasia with urinary frequency - ICD9: 600.01, 788.41, ICD10: N40.1, R35.0 Improved with flomax. Continue on a nightly basis. Debora Demarco MD documented in this encounter [facility] 01-19-2022 Miscellaneous Notes Patient returned call and given provider's message below and patient verbalized understanding. Yonathan Rodriguez RN Left message for patient to return call to receive results, recommendations and order (B12 draw that was missed). Left vm for patient to return call to nurse for provider's message. Per lab the patient will need to return to lab for B12 draw. Vitamin D level slightly low. Recommend 2,000 units of vitamin D OTC on a daily basis. Recheck in 3-6 months. May help with fatigue. A1c remains in prediabetes range at 5.9. Prostate cancer screening negative with normal PSA. Liver function markers mildly elevated similar to 1 year ago. Recommend avoidance of tylenol and alcohol and will discuss repeat testing and liver US at upcoming OV. Other labs normal. Vitamin B12 dose not look like it was drawn with the rest of his labs. Please contact lab to see if this is in process. documented in this encounter [facility] 12-23-2021 History of Presen t illness Narrative Chief Complaint Patient presents with: Fatigue Urinary Urgency: Feels he isn't emptying his bladder x 6 weeks HPI Mary Jo Ordoñez is a 56 year old male who presents here today for Above Complaints.. Patient complaining of urinary frequency and urgency with weak stream and incomplete emptying for the last 6 weeks. Admits to polyphagia. Denies dysuria, hematuria, fever/chills, abdominal pain, flank pain, nausea, vomiting, polydipsia, vision changes, neuropathy. Has family history of prostate cancer with father. C/o fatigue for the last couple of months. Using BIpap nightly. Sleeps good for about 4-5 hours and then tosses and turns. Denies depression, bleeding/bruising. Past medical history, appointments, medications, allergies reviewed. Previous Medical History PAST MEDICAL HISTORY Diagnosis Date Allergic rhinitis Cutaneous horn excised Depression Hypertension Impaired fasting glucose Malignant melanoma of left external auricular canal (HCC) 2020 [employer] Agda[employer] Mixed hyperlipidemia Morbid obesity (HCC) CARY treated with BiPAP Traumatic cataract of right eye Previous Surgical History PAST SURGICAL HISTORY Procedure Laterality Date COLONOSCOPY 2018 repeat in 5 years PAST SURGICAL HISTORY OF Left 2020 melanoma excision, ear REMV CATARACT EXTRACAP,INSERT LENS Right 2018 Family History FAMILY HISTORY Problem Relation Age of Onset Diabetes Mother Hypertension Mother Prostate Cancer Father 70 No Known Problems Sister No Known Problems Sister No Known Problems Brother No Known Problems Daughter No Known Problems Daughter Patient Allergies ALLERGIES Allergen Reactions Clarithromycin Diarrhea Current Medications Current Outpatient Medications on File Prior to Visit Medication Sig cetirizine (ZYRTEC) 10 mg tablet Take 10 mg by mouth once daily. BIPAP Initiate BiPAP @ cm of water with humidification. Mask (per patient preference) optional chin strap (if indicated) , filters, tubing, humidifier and lifetime supplies. sertraline (ZOLOFT) 100 mg tablet Take 1 tablet by mouth once daily. traZODone (DESYREL) 50 mg tablet Take 1 tablet by mouth daily at bedtime. multivit-minerals/folic acid (MEN'S MULTIVITAMIN GUMMIES ORAL) Take 2 Each by mouth once daily. irbesartan (AVAPRO) 150 mg tablet Take 1 tablet by mouth once daily. atorvastatin (LIPITOR) 20 mg tablet Take 1 tablet by mouth daily at bedtime. For cholesterol. (Patient not taking: Reported on 12/23/2021) No current facility-administered medications on file prior to visit. Social History Social History Tobacco Use Smoking status: Never Smokeless tobacco: Never Vaping Use Vaping Use: Never used Substance Use Topics Alcohol use: Yes Comment: 1-2 drinks per month Drug use: Never Review of Symptoms REVIEW OF SYSTEMS GENERAL: No weight loss, malaise or fevers RESPIRATORY: Negative for cough, hemoptysis, wheezing, COPD, dyspnea or shortness of breath CARDIOVASCULAR: Negative for chest pain, leg swelling, hypertension, CHF or palpitations GI: No nausea, vomiting, or diarrhea SKIN: Negative for lesions, rash, and itching EXAM: BP 128/82 Pulse 87 Resp 18 Wt (!) 156 kg (344 lb) SpO2 97% BMI 48.43 kg/m General Appearance: Well appearing, alert, in no acute distress, well-hydrated, well nourished.. Skin: Skin color, texture, turgor normal, no suspicious rashes or lesions. Lungs: Lungs clear to auscultation. No wheezing, rhonchi, rales.. Heart: RRR without murmur, gallop, or rubs. No ectopy. Abdomen: Normal abdominal exam, Abdomen soft, non-tender. Bowel sounds normal. No masses, organomegaly. Rectal: Negative findings: perianal area normal, anus normal, anal sphincter tone normal, Positive findings: prostate 2+ without nodules or TTP Health Maintenance List HEPATITIS B(1 of 3 - 3-dose series) Never done HEPATITIS C SCREENING Never done HIV SCREENING Never done COLORECTAL CANCER SCREENING Never done SHINGRIX VACCINE(2 of 2) due on 12/28/2020 DEPRESSION ASSESSMENT Never done ANNUAL PCP TEAM CHRONIC DISEASE VISIT due on 01/10/2022 BP CONTROLLED (<130/80) due on 01/10/2022 DIABETES SCREEN due on 01/14/2024 LIPID SCREEN due on 01/13/2026 DTAP,TDAP,TD(2 - Td or Tdap) due on 10/16/2027 INFLUENZA Completed COVID-19 VACCINE Completed Data reviewed Component Latest Ref Rng & Units 12/23/2021 GLUCOSE UA (POCT) Negative mg/dL Negative BILIRUBIN UA (POCT) Negative Negative KETONE UA (POCT) Negative mg/dL Negative SPECIFIC GRAVITY UA (POCT) 1.005 - 1.030 >=1.030 HEMOGLOBIN/BLOOD UA (POCT) Negative Negative PH UA (POCT) 4.5 - 8.0 5.5 PROTEIN UA (POCT) Negative mg/dL Negative UROBILINOGEN UA (POCT) Normal E.U./dL 0.2 NITRITE UA (POCT) Negative Negative LEUKOCYTES UA (POCT) Negative Negative COLOR UA (POCT) Yellow CLARITY UA (POCT) Clear ASSESSMENT/PLAN: 1. Urinary frequency - ICD9: 788.41, ICD10: R35.0 (primary diagnosis) UA negative for infection. Prostate enlarged without nodules or TTP. Start flomax and check labs as ordered. Call if not improving in 1 week and would increase dosage. - UA DIP, URINE (POC) - HGB A1C - PSA/PROSTSPECAG SCRN 2. Benign prostatic hyperplasia with urinary frequency - ICD9: 600.01, 788.41, ICD10: N40.1, R35.0 - HGB A1C - PSA/PROSTSPECAG SCRN 3. Essential hypertension - ICD9: 401.9, ICD10: I10 - good control - Continue current medication(s) - Encouraged dietary sodium restriction/DASH diet - Recommended regular aerobic exercise. - Reviewed risks of HTN and principles of treatment - Goal of BP <140/90 - IRBESARTAN 150 MG TABLET 4. Fatigue, unspecified type - ICD9: 780.79, ICD10: R53.83 Obtain labs as ordered. Work on sleep hygiene. Continue trazodone to help with sleep at night and use Bipap as ordered. - CBC + DIFF - COMP METABOLIC PANEL - TSH BLD - VITAMIN D 25 HYDROXY - VITAMIN B12 BLOOD Debora Demarco MD documented in this encounter [facility] 01-10-2021 Miscellaneous Notes Lab notified and verbalized understanding. Please call lab and see if they can do the hepatic function test that was ordered. Maria E Goldman [email or web address] documented in this encounter [facility] Annual physical exam- Primary Routine general medical examination at a health care facility Prediabetes Other abnormal glucose Anxiety with depression Elevated LFTs Other abnormal blood chemistry Primary hypertension Unspecified essential hypertension CARY treated with BiPAP Mixed hyperlipidemia Morbid obesity (HCC) Morbid obesity Vitamin D insufficiency Unspecified vitamin D deficiency Screening for HIV (human immunodeficiency virus) Special screening examination for other specified viral diseases Encounter for hepatitis C screening test for low risk patient Benign prostatic hyperplasia with urinary frequency [facility] Diagnosis Acute left-sided low back pain with left-sided sciatica- Primary Essential hypertension Unspecified essential hypertension [facility] Diagnosis Prediabetes- Primary Other abnormal glucose Vitamin D insufficiency Unspecified vitamin D deficiency CARY treated with BiPAP Primary hypertension Unspecified essential hypertension Benign prostatic hyperplasia with urinary frequency Mixed hyperlipidemia Anxiety with depression Acute left-sided low back pain with left-sided sciatica documented [facility] Diagnosis Essential hypertension Unspecified essential hypertension documented in this encounter [facility]* Diagnosis Essential hypertension- Primary Unspecified essential hypertension Prediabetes Other abnormal glucose CARY treated with BiPAP Mixed hyperlipidemia Benign prostatic hyperplasia with urinary frequency Obesity, Class III, BMI 40-49.9 (morbid obesity) (HCC) Morbid obesity Need for vaccination Need for prophylactic vaccination and inoculation against unspecified single disease [facility] Diagnosis Rhinosinusitis- Primary Unspecified sinusitis (chronic) documented [facility]* Diagnosis Prediabetes Other abnormal glucose documented in this encounter [facility] Reason for Referral Specialty Diagnoses / Procedures Referred By Dimple kelly Referred To Contact [facility] Diagnoses Acute left-sided low back pain with left-sided sciatica Procedures CONSULT TO PHYSICAL THERAPY PHYSICAL THERAPY EVALUATION HIGH COMPLEX 45 MINS Debora Demarco MD [address] [place] [address] [facility] [place] [address] [place] [address] Referral ID Status Reason Start Date Expiration Date Visits Requested Visits Authorized [id number] Pending Review Auto-Generat ed Referral 03/23/2022 03/23/2023 1 1 Specialty Diagnoses / Procedures Referred By Dimple kelly Referred To Contact Diagnoses Obesity, Class III, BMI 40-49.9 (morbid obesity) (HCC) Procedures CONSULT [facility] OFFICE[facility]PAT[facility] MDM 60-74 MINUTES Debora Demarco MD [address] [place] [address] Referral ID Status Reason Start Date Expiration Date Visits Requested Visits Authorized [id number] Authorized PCP Requested Referral 12/01/2022 12/01/2023 1 1 Summary Purpose Family History No Family History Records FoundNo Family History Records Found Advance Directives No Advanced Directives Records FoundNo Advanced Directives Records Found Additional Source Comments Source Comments (unrecognize d section and content) In the event this informatio n is protected by the Federal Confidentiality of Alcohol and Drug Abuse Patient Records regulations: The Federal rules restrict any use of the information to criminally investigate or prosecute any alcohol or drug abuse patient.[facility] event this information is protected by the Federal Confidentiality of Alcohol and Drug Abuse Patient Records regulations: The Federal rules restrict any use of the information to criminally investigate or prosecute any alcohol or drug abuse patient.[facility] HospitalIn the event this information is protected by the Federal Confidentiality of Alcohol and Drug Abuse Patient Records regulations: The Federal rules restrict any use of the information to criminally investigate or prosecute any alcohol or drug abuse patient.[facility] HospitalIn the event this information is protected by the Federal Confidentiality of Alcohol and Drug Abuse Patient Records regulations: The Federal rules restrict any use of the information to criminally investigate or prosecute any alcohol or drug abuse patient.[facility] HospitalIn the event this information is protected by the Federal Confidentiality of Alcohol and Drug Abuse Patient Records regulations: The Federal rules restrict any use of the information to criminally investigate or prosecute any alcohol or drug abuse patient.[facility] HospitalIn the event this information is protected by the Federal Confidentiality of Alcohol and Drug Abuse Patient Records regulations: The Federal rules restrict any use of the information to criminally investigate or prosecute any alcohol or drug abuse patient.[facility] HospitalIn the event this information is protected by the Federal Confidentiality of Alcohol and Drug Abuse Patient Records regulations: The Federal rules restrict any use of the information to criminally investigate or prosecute any alcohol or drug abuse patient.[facility] HospitalIn the event this information is protected by the Federal Confidentiality of Alcohol and Drug Abuse Patient Records regulations: The Federal rules restrict any use of the information to criminally investigate or prosecute any alcohol or drug abuse patient.[facility] HospitalIn the event this information is protected by the Federal Confidentiality of Alcohol and Drug Abuse Patient Records regulations: The Federal rules restrict any use of the information to criminally investigate or prosecute any alcohol or drug abuse patient.[facility] HospitalIn the event this information is protected by the Federal Confidentiality of Alcohol and Drug Abuse Patient Records regulations: The Federal rules restrict any use of the information to criminally investigate or prosecute any alcohol or drug abuse patient.[facility] HospitalIn the event this information is protected by the Federal Confidentiality of Alcohol and Drug Abuse Patient Records regulations: The Federal rules restrict any use of the information to criminally investigate or prosecute any alcohol or drug abuse patient.[facility] Reason for Visit (unrecogniz ed section and content) Reason Comments Fatigue Urinary Urgency Feels he isn't empty ing his bladder x 6 weeks Reason Comments Results Reason Comments Physical Reason Comments Back Pain Lower back x 3 weeks . Patient reports MRI last year showed DDD. Reason Comments F/U 3 Month Reason Onset Date Comments Refill Request 09/21/2022 Reason Comments Follow Up 6 month Reason Comments Cough Cough, sinus issues, stuffy head and ear pressure x 1 week Reason Onset Date Comments Refill Request 01/28/2023 Care Teams (unrecognized sec tion and content) Management Instructor Relationship Specialty Start Date End Date Debora Demarco MD [address] [place] [address] PCP - General Family Medicine 09/19/20 Management Instructor Relationship Specialty Start Date End Date Debora Demarco MD [address] [place] [address] PCP - General Family Medicine 09/19/20 Management Instructor Relationship Specialty Start Date End Date Debora Demarco MD [address] [place] [address] PCP - General Family Medicine 09/19/20 Management Instructor Relationship Specialty Start Date End Date Debora Demarco MD [address] [facility] [place] [address] PCP - General Family Medicine 09/19/20 Management Instructor Relationship Specialty Start Date End Date Debora Demarco MD [address] [facility] [place] [address] PCP - General Family Medicine 09/19/20 Management Instructor Relationship Specialty Start Date End Date Debora Demarco MD [address] [facility] [place] [address] PCP - General Family Medicine 09/19/20 Management Instructor Relationship Specialty Start Date End Date Debora Demarco MD [address] [facility] [place] [address] PCP - General Family Medicine 09/19/20 Management Instructor Relationship Specialty Start Date End Date Debora Demarco MD [address] [facility] [place] [address] PCP - General Family Medicine 09/19/20 Management Instructor Relationship Specialty Start Date End Date Debora Demarco MD [address] [facility] [place] [id number] PCP - General Family Medicine 09/19/20 (unrecognized sect ion and content) No Status Records FoundNo Status Records Found INFORMATION SOURCE (unrecogn ized section and content) DATE CREATED AUTHOR AUTHOR'S ORGANIZ ATION 03/28/2023 [facility] FOR RECORDS PERTAINING TO PATIENTS WHO ARE OR HAVE BEEN ENROLLED IN A CHEMICAL DEPENDENCY/SUBSTANCEABUSE PROGRAM, SOME INFORMATION MAY BE OMITTED. This clinical summary was aggregated from multiple sources. Caution should be exercised in using it in the provision of clinical care. This summary normalizes information from multiple sources, and as a consequence, information in this document may materially change the coding, format and clinical context of patient data. In addition, data may be omitted in some cases. CLINICAL DECISIONS SHOULD BE BASED ON THE PRIMARY CLINICAL RECORDS. [employer] provides no warranty or guarantee of the accuracy or completeness of information in this document.
[2023-03-29 06:22] LABS: Anion Gap 10 (5-15); BUN 22 mg/dL (7-18); BUN/Creat Ratio 18.8 RATIO (10-20); Calcium,Total 9.3 mg/dL (8.5-10.1); Chloride 104 mmol/L (98-107); Creatinine, Serum 1.17 mg/dL (0.70-1.30); EST Glomerular Filtration Rate 69 mL/min (>60); Est Glom Filt Rate - Afr Amer 83 mL/min (>60); Estimated Creatinine Clearance 108.99 ml/min; Glucose 151 mg/dL (74-106); Sodium Level 141 mmol/L (136-145)
[2023-03-29] MEDS: HYDROmorphone 1 MG/ML Syringe 0.5 MG IV (06:25)
[2023-03-29] MEDS: Ketorolac 30 MG/ML Syringe IV (07:06)
[2023-03-29 07:08] VITALS: BP 148/87; PULSE 75; RESP 15; O2SAT 92
[2023-03-29 07:32] LABS: Color, Urine Yellow (Yellow); Glucose, Dipstick Normal (Normal); Ketone-Dipstick 5 mg/dl (Negative); Leukocyte Esterase-Dipstick 25 /ul (Negative); Nitrite-Dipstick Negative (Negative); Occult Blood-Urine 250 /ul (Negative); Protein-Dipstick 30 mg/dl (Negative); Specific Gravity, Urine 1.025 (1.002-1.030); Urine Bilirubin Dipstick Negative (Negative); Urine Clarity Clear (Clear); Urine Urobilinogen Normal (Normal)
[2023-03-29 07:40] LABS: Bacteria 1+ /hpf (None Seen); Mucous, Urine 1+ /hpf (<or=2+); Red Blood Cells-Urine 5-10 SEEN /hpf (0-5); Squamous Epithelial Cells - UA 0-5 SEEN /hpf (0-5); White Blood Cells 5-10 SEEN /hpf (0-5)
== END 2023-03-29 08:08 | disposition home or self-care (01) ==
PROVIDERS: Emergency Provider Emergency Medicine; PCP Family Medicine; Visit Provider Emergency Medicine
DX: N20.1 Calculus of ureter (principal); E66.01 Morbid (severe) obesity due to excess calories; Z68.42 Body mass index [BMI] 45.0-49.9, adult; R11.2 Nausea with vomiting, unspecified; F32.A Depression, unspecified; I10 Essential (primary) hypertension; Z79.899 Other long term (current) drug therapy
CPT/HCPCS: 74176; 80048; 81001; 85025; 96361; 96374; 96375; 99282; J7030; J2405

== ENCOUNTER → 2023-04-02 | Outpatient (CLI) | payer BC, SELFPAY ==
--- NOTE | 2023-04-02 06:53 | EKG12_ITS ---
Test Reason : PREOP Blood Pressure : / mmHG Vent. Rate : 079 BPM Atrial Rate : 079 BPM P-R Int : 160 ms QRS Dur : 092 ms QT Int : 394 ms P-R-T Axes : 031 008 040 degrees QTc Int : 451 ms Sinus rhythm with occasional Premature ventricular complexes Otherwise normal ECG Confirmed by KANDI MALDONADO, EVELINA ([id number]), digital editor EDSON VELASQUEZ ([id number]) on 04/02/2023 7:54:22 AM Referred By: Edenilson Soares Confirmed By:EVELINA CHAU MD
--- OUTSIDE RECORDS SUMMARY | 2023-04-02 07:07 | XMS RPT_ITS | CCD ---
Author Name Unknown Address [address] [place] [address] Organization [facility] Care Team Providers Care Clinical Rehabilitation Coordinator Name Role Phone Debora Demarco MD Primary [...] Referring Unavailab DEBORA Najera Primary Care Unavailab brigette Allergies Allergy Classification Reported Allergen(s) Allergy Type Date of Onset Reaction(s) Facility (13 sources) Clarithromycin; Translations: [CLARITHROMYCIN] Drug Allergy 02-20-2016 Diarrhea [facility] (10 sources) atorvastatin; Translations: [ATORVASTATIN] Drug Allergy 02-24-2022 Intolerance [facility] Work Phone: Medications Current Medications Medication Drug [...] 98.4 [degF] Earlene Acuna APRN.CNP Work Phone: [facility] 12-15-2022 18:41-0400 Body weight 157.49 kg Earlene Acuna APRN.CNP Work Phone: [facility] 12-15-2022 18:41-0400 Diastolic blood pressure 84 mm[Hg] Earlene Acuna APRN.CNP Work Phone: [facility] 12-15-2022 18:41-0400 Heart rate 86 /min Earlene Acuna PROPOSITION PLAYER.DYE MACHINE OPERATOR Work Phone: [facility] 12-15-2022 18:41-0400 Respiratory rate 16 /min Earlene Acuna PROPOSITION PLAYER.DYE MACHINE OPERATOR Work Phone: [facility] 12-15-2022 18:41-0400 SaO2% (BldA) [Mass fraction] 96 % Earlene Acuna PROPOSITION PLAYER.DYE MACHINE OPERATOR Work Phone: [facility] 12-15-2022 18:41-0400 Systolic blood pressure 124 mm[Hg] Earlene Acuna PROPOSITION PLAYER.DYE MACHINE OPERATOR Work Phone: [facility] 12-01-2022 17:16-0400 Body weight 156.67 kg Debora Demarco MD Work Phone: [facility] 12-01-2022 17:16-0400 Diastolic blood pressure 76 mm[Hg] Debora Demarco MD Work Phone: [facility] 12-01-2022 17:16-0400 Heart rate 75 /min Debora Demarco MD Work Phone: [facility] 12-01-2022 17:16-0400 Respiratory rate 18 /min Debora Demarco MD Work Phone: [facility] 12-01-2022 17:16-0400 SaO2% (BldA) [Mass fraction] 97 % Debora Demarco MD Work Phone: [facility] 12-01-2022 17:16-0400 Systolic blood pressure 116 mm[Hg] Debora Demarco MD Work Phone: [facility] 05-26-2022 17:12-0400 Body weight 156.94 kg Debora Demarco MD Work Phone: [facility] 05-26-2022 17:12-0400 Diastolic blood pressure 82 mm[Hg] Debora Demarco MD Work Phone: [facility] 05-26-2022 17:12-0400 Heart rate 77 /min Debora Demarco MD Work Phone: [facility] 05-26-2022 17:12-0400 Respiratory rate 18 /min Debora Demarco MD Work Phone: [facility] 05-26-2022 17:12-0400 SaO2% (BldA) [Mass fraction] 96 % Debora Demarco MD Work Phone: [facility] 05-26-2022 17:12-0400 Systolic blood pressure 132 mm[Hg] Debora Demarco MD Work Phone: [facility] 03-23-2022 11:21-0500 Body weight 157.13 kg Debora Demarco MD Work Phone: [facility] 03-23-2022 11:21-0500 Diastolic blood pressure 76 mm[Hg] Debora Demarco MD Work Phone: [facility] 03-23-2022 11:21-0500 Heart rate 72 /min Debora Demarco MD Work Phone: [facility] 03-23-2022 11:21-0500 Respiratory rate 16 /min Debora Demarco MD Work Phone: [facility] 03-23-2022 11:21-0500 SaO2% (BldA) [Mass fraction] 96 % Debora Demarco MD Work Phone: [facility] 03-23-2022 11:21-0500 Systolic blood pressure 118 mm[Hg] Debora Demarco MD Work Phone: [facility] 02-24-2022 17:41-0500 Body height 181 cm Debora Demarco MD Work Phone: [facility] 02-24-2022 17:41-0500 Body weight 158.31 kg Debora Demarco MD Work Phone: [facility] 02-24-2022 17:41-0500 Diastolic blood pressure 72 mm[Hg] Debora Demarco MD Work Phone: [facility] 02-24-2022 17:41-0500 Heart rate 60 /min Debora Demarco MD Work Phone: [facility] 02-24-2022 17:41-0500 Respiratory rate 16 /min Debora Demarco MD Work Phone: [facility] 02-24-2022 17:41-0500 SaO2% (BldA) [Mass fraction] 97 % Debora Demarco MD Work Phone: [facility] 02-24-2022 17:41-0500 Systolic blood pressure 120 mm[Hg] Debora Demarco MD Work Phone: [facility] 12-23-2021 14:25-0400 Body weight 156.04 kg Debora Demarco MD Work Phone: [facility] 12-23-2021 14:25-0400 Diastolic blood pressure 82 mm[Hg] Debora Demarco MD Work Phone: [facility] 12-23-2021 14:25-0400 Heart rate 87 /min Debora Demarco MD Work Phone: [facility] 12-23-2021 14:25-0400 Respiratory rate 18 /min Debora Demarco MD Work Phone: [facility] 12-23-2021 14:25-0400 SaO2% (BldA) [Mass fraction] 97 % Debora Demarco MD Work Phone: [facility] 12-23-2021 14:25-0400 Systolic blood pressure 128 mm[Hg] Debora Demarco MD Work Phone: [facility] Encounters Encounter Date Encounter Type Care Provider Facility Start: 03-24-2023 ambulatory DEBORA Nguyen acility:[facility] Start: 03-24-2023 End: 03-25-2023 ambulatory DEBORA DEMARCO Facility:[facility] Start: 03-11-2023 End: 03-12-2023 ambulatory DEBORA DEMARCO Facility:[facility] Start: 01-28-2023 Refill Debora Demarco MD Work Phone: [facility] [place] Procedures Date Procedure Procedure Detail Performing Clinician [...] depression scr eening assessment Maria E Goldman PROPOSITION PLAYER.DYE MACHINE OPERATOR Work Phone: Plan of Treatment Date Care Activity Detail Author Start: 10-16-2027 Urine microalbumin profile [facility] Start: 02-28-2027 Lipid 1996 panel - S margy or Plasma Lipid Screening [facility] Start: 02-28-2027 LIPID SCREEN LIPID SCREEN [facility] Start: 12-23-2026 PROSTATE CANCER SCRE ENING DISCUSSION PROSTATE CANCER SCREENING DISCUSSION [facility] Start: 01-13-2026 LIPID SCREEN LIPID SCREEN [facility] Start: 02-28-2025 DIABETES SCREEN DIABETES SCREEN [facility] Start: 02-28-2025 Diabetes Screening Diabetes Screenin g [facility] Start: 12-23-2024 DIABETES SCREEN DIABETES SCREEN [facility] Start: 01-14-2024 DIABETES SCREEN DIABETES SCREEN [facility] Start: 12-02-2023 Annual PCP Team Registered Dental Assistant Rda bloivar Disease Visit Annual PCP Team Chronic Disease Visit [facility] Start: 12-02-2023 BP Controlled (<130/80) BP Controlle d (<130/80) [facility] Start: 05-27-2023 ANNUAL PCP TEAM GEOGRAPHIC ANALYST BOLIVAR DISEASE VISIT ANNUAL PCP TEAM CHRONIC DISEASE VISIT [facility] Start: 03-23-2023 ANNUAL PCP TEAM GEOGRAPHIC ANALYST BOLIVAR DISEASE VISIT ANNUAL PCP TEAM CHRONIC DISEASE VISIT [facility] Start: 03-23-2023 BP CONTROLLED (<130/80) BP CONTROLLE D (<130/80) [facility] Start: 02-24-2023 ANNUAL PCP TEAM GEOGRAPHIC ANALYST BOLIVAR DISEASE VISIT ANNUAL PCP TEAM CHRONIC DISEASE VISIT [facility] Start: 02-24-2023 BP CONTROLLED (<130/80) BP CONTROLLE D (<130/80) [facility] Start: 02-24-2023 HEPATITIS B (1 of 3 - 3-dose series) HEPATITIS B (1 of 3 - 3-dose series) [facility] Immunizations Immunization Date Immunization Notes Care Provider Rey ilanmorgan 12-01-2022 influenza, injectabl e, quadrivalent, contains preservative Debora Demarco MD Work Phone: [facility] 12-06-2021 COVID-19 booster vaccine, age 12+ yr, bivalent (PFIZER-BIONTECH) Debora Demarco MD Work Phone: [facility] 12-06-2021 influenza, injectabl e, quadrivalent, preservative free Debora Demarco MD Work Phone: [facility] Work Phone: 12-06-2021 influenza, seasonal, injectable Debora Demarco MD Work Phone: [facility] 02-05-2021 zoster vaccine recombinant Debora Demarco MD Work Phone: [facility] Work Phone: 11-02-2020 influenza virus vaccine, unspecified formulation Maria E Goldman PROPOSITION PLAYER.DYE MACHINE OPERATOR Work Phone: [facility] 11-02-2020 influenza, injectabl e, quadrivalent, preservative free Debora Demarco MD Work Phone: [facility] Work Phone: 11-02-2020 zoster vaccine recombinant Maria E Goldman PROPOSITION PLAYER.DYE MACHINE OPERATOR Work Phone: [facility] 06-28-2020 COVID-19 vaccine, ag e 12+ yr (PFIZER-BIONTECH - PURPLE TOP) Maria E Goldman PROPOSITION PLAYER.DYE MACHINE OPERATOR Work Phone: [facility] Work Phone: 06-07-2020 COVID-19 vaccine, ag e 12+ yr (PFIZER-BIONTECH - PURPLE TOP) Maria E Goldman PROPOSITION PLAYER.DYE MACHINE OPERATOR Work Phone: [facility] Work Phone: 12-12-2019 influenza, injectabl e, quadrivalent, preservative free Debora Demarco MD Work Phone: [facility] Work Phone: 10-15-2017 tetanus toxoid, reduced diphtheria toxoid, and acellular pertussis vaccine, adsorbed Maria E Podlogar PROPOSITION PLAYER.DYE MACHINE OPERATOR Work Phone: [facility] 12-14-2016 influenza, seasonal, injectable, preservative free Maria E Podlogar PROPOSITION PLAYER.DYE MACHINE OPERATOR Work Phone: [facility] Work Phone: 03-05-2009 novel [id number], preservative-free, injectable Maria E Podlogar PROPOSITION PLAYER.DYE MACHINE OPERATOR Work Phone: [facility] Work Phone: Payers Date Payer Category Payer Unknown [employer] DARNELL SS PPO [id number] 2019-Present [phone] [address] [place] [address] PPO [id number] 2019 Unknown ALVARO BOTELLO ACCE SS PPO [id number] 2019-Present [phone] [id number] [place] [address] PPO [id number] 2019 Unknown [id number] Social History Date Type Detail Facility Start: 05-19-2019 End: 12-23-2021 Tobacco smoking status NHIS Never smoked tobacco [facility] Start: 05-19-2019 End: 12-23-2021 Tobacco use and exposure Smokeless tobacco non-user [facility] Start: 01-10-2021 End: 12-15-2022 Alcohol intake Current drinker of alcohol (finding) [facility] Start: 09-18-2020 End: 02-20-2022 History SDOH Alcohol Frequency 3 [facility] Start: 09-18-2020 End: 02-20-2022 History SDOH Alcohol Std Drinks 1 [facility] Start: 09-18-2020 End: 02-20-2022 History SDOH Alcohol Binge 2 [place] [facility] Start: 09-19-2020 History SDOH Alcohol Comment 1-2 drinks per month [facility] Start: 09-18-2020 End: 02-20-2022 History SDOH Physical Activity MPS 5 [facility] Start: 09-18-2020 Education 17 [facility] Start: 1965 Sex Assigned At Male C [facility] Start: 12-11-2020 End: 12-23-2021 Exposure to SARS-CoV-2 (event) Not sure [facility] Start: 02-20-2022 History SDOH Physica l Activity DPW 0 [facility] Start: 02-20-2022 End: 12-01-2022 [facility] Start: 02-20-2022 End: 12-01-2022 Social connection and isolation panel [facility] Do you belong to any clubs or organizations such as sabianism groups, unions, fraHitlab or athletic groups, or school groups? No [facility] Are you now , , , , never or living with a partner? [facility] How often to you hav e a drink containing alcohol? Monthly or less [facility] How many standard dr inks containing alcohol do you have on a typical day? 1 or 2 [facility] How often do you hav e 6 or more drinks on 1 occasion? Less than monthly [facility] How hard is it for y ou to pay for the very basics like food, housing, medical care, and heating Not hard at all [facility] Do you feel stress - tense, restless, nervous, or anxious, or unable to sleep at night because your mind is troubled all the time - these days [OSQ] To some extent [facility] (I/We) worried saira er (my/our) food would run out before (I/we) got money to buy more. Never true [facility] Start: 02-05-2020 Gender identity Identifies as male gender (finding) [facility] Start: 02-05-2020 Sexual orientation Heterosexual (neeru martin) [facility] Clinical Notes 01-10-2021 to 01-10-2024 Telephone Encounter - Radha GaliciaCLARE - 01/28/2023 10:34 AM Earlene Akhtar APRN.DYE MACHINE OPERATOR - 12/15/2022 6:49 PM Debora Warner MD - 12/01/2022 5:34 PM EDT Note Date & Type Note Facility 03-24-2023 Note HNO ID: [id number] Author: ETHEL MONROY CT Service: Radiology Author [...] RDMS, RVJamel March 24, 2023 1:29 PM [facility] 03-24-2023 Note HNO ID: [id number] Author: DEBORA DEMARCO MD Service: ? Author [...] 01/15/[address] 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 [facility] 01-28-2023 Miscellaneous Notes CHRISTOPHER-12/01/22 Labs-02/28/22 NOV-06/01/23 Radha Galicia LPN documented in this encounter [facility] 12-15-2022 Note HNO ID: [id number] Author: Earlene Acuna APRN.WAQAR Service: ? Author Type: Nurse Practitioner Type: Progress Notes Filed: 12/15/2022 7:00 PM Note Text: This note was created using Scaliriter. Subjective Mary Jo Ordoñez is a 57 [...] history is provided by the patient. No ironing worker was used. Sinus Problem This is a [...] 01/15/[address] 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 Constitutional: (more content not included)... [facility] 12-15-2022 History of Presen t illness Narrative This note was created using Scaliriter. Subjective Mary Jo Ordoñez is a 57 [...] history is provided by the patient. No ironing worker was used. Sinus Problem This is a [...] 01/15/[address] 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 Earlene Acuna APRN.DYE MACHINE OPERATOR documented in this encounter [facility] 12-10-2022 Note HNO ID: [id number] Author: Johnie Angel APRN.WAQAR Service: ? Author [...] 01/15/[address] 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 Abdom (more content not included)... [facility] 12-01-2022 Note HNO ID: [id number] Author: Debora Demarco MD Service: ? Author [...] well controlled on regimen through psychiatry in [place]. Following up once 3 months. Not seeing [...] 01/15/[address] Carias in [place] Hypertension Impaired fasting glucose Malignant melanoma of left external auricular canal (HCC) 2020 [facility] [place] Mixed hyperlipidemia Morbid obesity (HCC) CARY treated [...] - 3-dose series) (more content not included)... [facility] 12-01-2022 History of Presen t illness Narrative [...] well controlled on regimen through psychiatry in [place]. Following up once 3 months. Not seeing [...] 01/15/[address] 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 Author Type: Physician Type: Progress Notes Filed: 05/26/2022 5:38 PM Note Text: Chief Complaint Patient presents with: F/U 3 Month HPI Mary Jo Ordoñez is a 56 year old male who presents here today for Above Complaints. Previous HPI: Patient following up with psychiatry in [place] about every 3-4 months for anxiety and [...] 01/15/[address] 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 [facility] 05-26-2022 History of Presen t illness Narrative Chief Complaint Patient presents with: F/U 3 Month HPI Mary Jo Ordoñez is a 56 year old male who presents here today for Above Complaints. Previous HPI: Patient following up with psychiatry in [place] about every 3-4 months for anxiety and [...] 01/15/[address] 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 which showed mild DDD. Past medical history, appointments, medications, allergies reviewed. Previous Medical History PAST MEDICAL HISTORY Diagnosis Date Allergic rhinitis BPH (benign prostatic hyperplasia) Cutaneous horn excised Depression Elevated LFTs 01/15/[address] 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 Maria E Podlogar, PROPOSITION PLAYER.DYE MACHINE OPERATOR documented in this encounter [facility] 02-24-2022 History of Presen t illness Narrative Chief Complaint Patient presents with: Physical HPI Mary Jo Ordoñez is a 56 year old male who presents here today for annual physical. Has been in good health without hospitalizations or ER visits. Patient following up with psychiatry in [place] about every 3-4 months for anxiety and [...] left external auricular canal (HCC) 2020 [facility] [place] Mixed hyperlipidemia Morbid obesity (HCC) CARY treated [...] Abs Lymph 1.00 - 4.00 k/uL 3.30 [place]% % 7.5 Abs [place] <0.87 k/uL 0.63 [place]osin% % 1.8 Abs [...] Debora Demarco MD documented in this encounter [facility] 01-19-2022 Miscellaneous Notes Patient returned call and [...] is in process. documented in this encounter [facility] 12-23-2021 History of Presen t illness Narrative [...] left external auricular canal (HCC) 2020 [facility] [place] Mixed hyperlipidemia Morbid obesity (HCC) CARY treated [...] Debora Demarco MD documented in this encounter [facility] 01-10-2021 Miscellaneous Notes Lab notified and verbalized understanding. Please call lab and see if they can do the hepatic function test that was ordered. Maria E Goldman APRN.WAQAR documented in this encounter [facility] Annual physical exam- Primary Routine [...] with urinary frequency [facility] Diagnosis Acute left-sided low back pain with left-sided sciatica- Primary Essential hypertension Unspecified essential hypertension [facility] Diagnosis Prediabetes- Primary Other abnormal glucose Vitamin D insufficiency Unspecified vitamin D deficiency CARY treated with BiPAP Primary hypertension Unspecified essential hypertension Benign prostatic hyperplasia with urinary frequency Mixed hyperlipidemia Anxiety with depression Acute left-sided low back pain with left-sided sciatica documented [facility] Diagnosis Essential hypertension Unspecified essential hypertension documented in this encounter [facility] note* Diagnosis Essential hypertension- Primary Unspecified essential hypertension Prediabetes Other abnormal glucose CARY treated with BiPAP Mixed hyperlipidemia Benign prostatic hyperplasia with urinary frequency Obesity, Class III, BMI 40-49.9 (morbid obesity) (HCC) Morbid obesity Need for vaccination Need for prophylactic vaccination and inoculation against unspecified single disease [facility]* Diagnosis Rhinosinusitis- Primary Unspecified sinusitis (chronic) [facility] Diagnosis Prediabetes Other abnormal glucose documented in this encounter [facility] Reason for Referral Specialty Diagnoses / Procedures Referred By Dimple kelly Referred To Contact [facility] INS Diagnoses Acute left-sided low back pain with left-sided sciatica Procedures CONSULT TO PHYSICAL THERAPY PHYSICAL THERAPY EVALUATION HIGH COMPLEX 45 MINS Debora Demarco MD [address] [place] [address] [facility] [address] [place] [address] Referral ID Status Reason Start Date Expiration Date Visits Requested Visits Authorized [id number] Pending Review Auto-Generat ed Referral 03/23/2022 03/23/2023 1 1 Specialty Diagnoses / Procedures Referred By Dimple kelly Referred To Contact Diagnoses Obesity, Class III, BMI 40-49.9 (morbid obesity) (HCC) Procedures CONSULT [facility] OFFICE/OUTPATIENT [facility] MDM 60-74 MINUTES Debora Demarco MD [address] [place] [address] Referral ID Status Reason Start Date Expiration Date Visits Requested Visits Authorized [id number] Authorized PCP Requested Referral 12/01/2022 12/01/2023 1 [...] or prosecute any alcohol or drug abuse patient.[facility] the event this information is protected by the Federal Confidentiality of Alcohol and Drug Abuse Patient Records regulations: The Federal rules restrict any use of the information to criminally investigate or prosecute any alcohol or drug abuse patient.[facility] the event this information is protected by the Federal Confidentiality of Alcohol and Drug Abuse Patient Records regulations: The Federal rules restrict any use of the information to criminally investigate or prosecute any alcohol or drug abuse patient.[facility] the event this information is protected by the Federal Confidentiality of Alcohol and Drug Abuse Patient Records regulations: The Federal rules restrict any use of the information to criminally investigate or prosecute any alcohol or drug abuse patient.[facility] the event this information is protected by the Federal Confidentiality of Alcohol and Drug Abuse Patient Records regulations: The Federal rules restrict any use of the information to criminally investigate or prosecute any alcohol or drug abuse patient.[facility] the event this information is protected by the Federal Confidentiality of Alcohol and Drug Abuse Patient Records regulations: The Federal rules restrict any use of the information to criminally investigate or prosecute any alcohol or drug abuse patient.[facility] the event this information is protected by the Federal Confidentiality of Alcohol and Drug Abuse Patient Records regulations: The Federal rules restrict any use of the information to criminally investigate or prosecute any alcohol or drug abuse patient.[facility] the event this information is protected by the Federal Confidentiality of Alcohol and Drug Abuse Patient Records regulations: The Federal rules restrict any use of the information to criminally investigate or prosecute any alcohol or drug abuse patient.[facility] the event this information is protected by the Federal Confidentiality of Alcohol and Drug Abuse Patient Records regulations: The Federal rules restrict any use of the information to criminally investigate or prosecute any alcohol or drug abuse patient.[facility] the event this information is protected by the Federal Confidentiality of Alcohol and Drug Abuse Patient Records regulations: The Federal rules restrict any use of the information to criminally investigate or prosecute any alcohol or drug abuse patient.[facility] the event this information is protected by the Federal Confidentiality of Alcohol and Drug Abuse Patient Records regulations: The Federal rules restrict any use of the information to criminally investigate or prosecute any alcohol or drug abuse patient.[facility] Reason for Visit (unrecogniz ed section and [...] Care Teams (unrecognized sec tion and content) Clinical Rehabilitation Coordinator Relationship Specialty Start Date End Date Debora Demarco MD [address] [facility] [place] [address] PCP - General Family Medicine 09/19/20 Clinical Rehabilitation Coordinator Relationship Specialty Start Date End Date Debora Demarco MD [address] [place] [address] PCP - General Family Medicine 09/19/20 Clinical Rehabilitation Coordinator Relationship Specialty Start Date End Date Debora Demarco MD [address] [place] [address] PCP - General Family Medicine 09/19/20 Clinical Rehabilitation Coordinator Relationship Specialty Start Date End Date Debora Demarco MD [address] [place] [address] PCP - General Family Medicine 09/19/20 Clinical Rehabilitation Coordinator Relationship Specialty Start Date End Date Debora Demarco MD [address] [place] [address] PCP - General Family Medicine 09/19/20 Clinical Rehabilitation Coordinator Relationship Specialty Start Date End Date Debora Demarco MD [address] [place] [address] PCP - General Family Medicine 09/19/20 Clinical Rehabilitation Coordinator Relationship Specialty Start Date End Date Debora Demarco MD [address] [place] [address] PCP - General Family Medicine 09/19/20 Clinical Rehabilitation Coordinator Relationship Specialty Start Date End Date Debora Demarco MD [address] [facility] [place] [address] PCP - General Family Medicine 09/19/20 Clinical Rehabilitation Coordinator Relationship Specialty Start Date End Date Debora Demarco MD [address] [facility] [place] [id number] PCP - General Family Medicine 09/19/20 (unrecognized sect ion and content) No Status Records FoundNo Status Records Found INFORMATION SOURCE (unrecogn ized section and content) DATE CREATED AUTHOR AUTHOR'S ORGANIZ ATION 03/28/2023 [facility] FOR RECORDS PERTAINING TO PATIENTS WHO ARE [...] BE BASED ON THE PRIMARY CLINICAL RECORDS. [employer] provides no warranty or guarantee of the accuracy or completeness of information in this document.
== END | disposition home or self-care (01) ==
LOC: PSN 06:52
PROVIDERS: PCP Family Medicine; Referring Provider Urology; Visit Provider Urology
DX: Z01.810 Encounter for preprocedural cardiovascular examination (principal)
CPT/HCPCS: 93005

== ENCOUNTER 2024-03-10 07:27 | Day surgery (SDC) | payer BC, SELFPAY ==
[2024-03-10 07:51] VITALS: BP 162/82; PULSE 74; RESP 16; TEMP 36.1; O2SAT 99; BMI 46.7
[2024-03-10 08:25] LABS: Bedside Glucose 103 mg/dL (74-106)
--- NOTE | 2024-03-10 08:26 | HP.PCM_ITS ---
HPI - General HPI Narrative MARY JO BOATENG, is a 58 M who presents for screening colonoscopy. His last colonoscopy was 5 years ago but the prep was not complete. He denies abdominal pain or blood in the stool. He has family history of colon cancer in 2 uncles. [facility] Medical History (Updated 03/06/24 @ 13:14 by Priti Morales) Wears glasses Cancer Anxiety Diabetes High cholesterol Non-smoker CPAP (continuous positive airway pressure) dependence Sleep apnea Pre-diabetes Obstructive sleep apnea Insomnia Hypertension Depression Home Medications ?Medication ?Instructions ?Recorded ?Last Taken ?Type cetirizine 10 mg tablet (Zyrtec) 10 mg PO DAILY 12/28/19 Unknown History sertraline 100 mg tablet (Zoloft) 150 mg PO DAILY 12/28/19 Unknown History ascorbate calcium (vitamin C) 500 500 mg PO DAILY 10/15/21 Unknown History mg tablet multivitamin (Daily Multi-Vitamin 1 tab PO DAILY 10/15/21 Unknown History tablet) trazodone 50 mg tablet 75 mg (1.5 x 50 mg) PO QHS #135 03/09/23 Unknown Rx tabs alprazolam 0.5 mg tablet 0.5 mg PO QHS PRN anxiety 03/29/23 Unknown History buspirone 15 mg tablet 15 mg PO BID 03/29/23 Unknown History irbesartan 150 mg tablet 150 mg PO DAILY 03/29/23 Unknown History metformin 500 mg tablet 500 mg PO DAILY 03/29/23 Unknown History Allergy/AdvReac Type Severity Reaction Status Date / Time clarithromycin (From Biaxin) Allergy Mild diarrhea Verified 03/10/24 07:43 Family History (Updated 01/18/24 @ 10:30 by Flaca Perez) Mother Diabetes Hypertension Father Prostate cancer Hypertension Uncle Colon cancer Maternal Uncles x2 Surgical History (Updated 03/06/24 @ 13:09 by Priti Morales) History of carpal tunnel surgery of left wrist Hx of colonoscopy s/p right catarct removed s/p skin cancer removed s/p tubes placed in ears Social History (Updated 01/18/24 @ 10:31 by Flaca Perez) household members: spouse current occupational status: employed Smoking Status: Never smoker alcohol intake: current details: occasionally substance use type: does not use Past Medical/Surgical History Planned Operation Planned Operative Procedure(s): COLONOSCOPY Previous Hospitalizations/Surgeries HX Hospitalizations: No Any Problems With Anesthesia: No You/Your Family Experience Fever (Hyperthermia) With Anes: No Cholinesterase deficiency: No Cardiovascular Hx Hypertension: Yes Respiratory Hx Sleep Apnea: Yes CPAP: Yes BIPAP: No Hx Respiratory Tract Infection/Cold (presently): No Result (for STOP score): Positive Smoking Status: Never smoker Neurological Does patient have nerve stimulator: No Miscellaneous Recent Exposure to Contagious Disease: No Allergies clarithromycin (From Biaxin) Allergy (Mild, Verified 03/10/24 07:43) diarrhea Discharge Is Pt Admitted From a Residential, or a [facility]: No Who Could Help: After D/C, Where Do you Plan to Go: Return Home Vital Signs Vital Signs Vital Signs: 03/10/24 07:51 03/10/24 07:51 Temperature 97 F L Temperature Source Temporal Pulse Rate 74 Respiratory Rate 16 Respiratory Pattern Normal Blood Pressure 162/82 H Blood Pressure Mean 108 Blood Pressure Source Monitor Blood Pressure Position Semi-Fowlers Blood Pressure Location Right Arm Pulse Ox 99 Oxygen Delivery Method Room Air Weight Weight: 335 lb 1.642 oz Body Mass Index (BMI) 46.7 Physical Exam Const alert and oriented x3 HEENT normocephalic Eyes PERRL Resp normal respiratory effort and normal air movement Cardio regular rate and regular rhythm GI soft to palpation, non-tender and non-distended Extremity normal to inspection Assessment & Plan Assessment/Plan (1) Encounter for screening for malignant neoplasm of colon: PLAN: I explained endoscopy in detail to the patient. I explained the risks including but not limited to stroke or heart attack with anesthesia, perforation of the GI tract, bleeding, infection. I explained that any of these could ne cessitate further emergency surgery. The patient understands and all questions were answered sufficiently. The patient wishes to proceed with procedure. Raza Manzano MD Pager: [facility] [address] [place] [address], [address] [place] [address] Office: Surgery Risks - Colonoscopy Risks Include but are not Limited To: Risks include but are not limited to: Bleeding, perforation requiring further surgery, inability to complete colonoscopy requiring barium enema.
[2024-03-10 08:28] VITALS: BP 162/82; PULSE 74; RESP 16; TEMP 36.1; O2SAT 99
--- NOTE | 2024-03-10 08:28 | PCM.PRE.AN2 ---
ASA Classification* ASA Classification ASA Classification: 3 Assessment & Plan Anesthesia* Anesthesia Assessment Anesthesia Assessment: Discussed sedation and/or anesthesia options, risks, benefits, and alternatives with patient/parents/legal guardian/POA. Questions invited. The patient/parents/legal guardian/POA seems to understand and agrees to proceed with anesthesia plan. Reviewed the physical assessment, medical history, allergy history and patient home medications list prior to surgery/procedure/anesthetic and documented any changes. Performed airway and anesthesia risk assessments. Anesthesia Type Anesthesia Type: MAC Anesthesia Focused Assessment* Temperature: 97 F Pulse Rate: 74 Blood Pressure: 162/82 Respiratory Rate: 16 Pulse Ox: 99 Airway Assessment Mouth opens: >3 cm Mallampati Score: II Focused Labs Anesthesia Preop lab: CBC WBC 9.7 K/mm3 (4.4-11.0) 03/29/23 05:43 RBC 4.88 M/mm3 (4.6-6.2) 03/29/23 05:43 Hgb 14.7 g/dL (13.0-16.5) 03/29/23 05:43 Hct 44.4 % (40-54) 03/29/23 05:43 Plt Count 266 K/mm3 (150-450) 03/29/23 05:43 CHEMISTRY Potassium 4.0 mmol/L (3.5-5.1) 03/29/23 05:43 Sodium 141 mmol/L (136-145) 03/29/23 05:43 BUN 22 mg/dL (7-18) H 03/29/23 05:43 Creatinine 1.17 mg/dL (0.70-1.30) 03/29/23 05:43 Glucose 151 mg/dL (74-106) H 03/29/23 05:43 POC Glucose 103 mg/dL (74-106) 03/10/24 07:49 COAG Pre-Assessment Diagnosis/Proposed Procedure Planned Operative Procedure(s): COLONOSCOPY Anesthesia History 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 When Was Last Pacemaker Check QUESTION #4 FULL TEXT: You/Your Family Experience fever (hyperthermia) with Anesthesia Last Oral Intake Last Oral intake: Last Oral Intake NPO since 04:45 03/10/24 07:51 Meds taken in AM with sips of No 03/10/24 07:51 water? 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 Female No 03/06/24 13:09 HX of Motion Sickness No 03/06/24 13:09 HX of N/V After Surgery No 03/06/24 13:09 Non-Smoker Yes 03/06/24 13:09 Duration of Surgery greater No 03/06/24 13:09 than 60 minutes Number of Risk Factors 1 03/06/24 13:09 PONV Score Low Risk 03/06/24 13:09 Height & Weight Height & Weight: Anesthesia: Height & Weight Height 5 ft 11 in 03/10/24 07:51 Weight: 152 kg 03/10/24 07:51 Body Mass Index (BMI) 46.7 03/10/24 07:51 Respiratory Assessment Respiratory Assessment - 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 Has anyone observed you stop breathing during sleep? STOP Results Positive 03/10/24 08:27 QUESTION #5 FULL TEXT : Do you snore loudly (louder than talking or can be heard through closed doors)? 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 Specify any problems Hx of Preganancy in last 3 N/A 03/06/24 13:09 Months Nurse Filling Out Transfusion [facility] 03/06/24 13:09 & Questions: Date: 03/06/24 03/06/24 13:09 Time: 13:15 03/06/24 13:09 Patient unable to answer at this time (ie. 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 density press operator Hx Now Gestational Age (in weeks): EDC: Hx Hx [facility] History Wears glasses Cancer Anxiety Diabetes High cholesterol Non-smoker CPAP (continuous positive airway pressure) dependence Sleep apnea Pre-diabetes Obstructive sleep apnea Insomnia Hypertension Depression Home Medications ?Medication ?Instructions ?Recorded ?Last Taken ?Type cetirizine 10 mg tablet (Zyrtec) 10 mg PO DAILY 12/28/19 Unknown History sertraline 100 mg tablet (Zoloft) 150 mg PO DAILY 12/28/19 Unknown History ascorbate calcium (vitamin C) 500 500 mg PO DAILY 10/15/21 Unknown History mg tablet multivitamin (Daily Multi-Vitamin 1 tab PO DAILY 10/15/21 Unknown History tablet) trazodone 50 mg tablet 75 mg (1.5 x 50 mg) PO QHS #135 03/09/23 Unknown Rx tabs alprazolam 0.5 mg tablet 0.5 mg PO QHS PRN anxiety 03/29/23 Unknown History buspirone 15 mg tablet 15 mg PO BID 03/29/23 Unknown History irbesartan 150 mg tablet 150 mg PO DAILY 03/29/23 Unknown History metformin 500 mg tablet 500 mg PO DAILY 03/29/23 Unknown History Allergy/AdvReac Type Severity Reaction Status Date / Time clarithromycin (From axin) Allergy Mild diarrhea Verified 03/10/24 07:43 Family History Mother Diabetes Hypertension Father Prostate cancer Hypertension Uncle Colon cancer Maternal Uncles x2 Surgical History History of carpal tunnel surgery of left wrist Hx of colonoscopy s/p right catarct removed s/p skin cancer removed s/p tubes placed in ears Social History household members: spouse current occupational status: employed Smoking Status: Never smoker alcohol intake: current details: occasionally substance use type: does not use Review of Systems (Anesthesia) ROS Narrative System reviewed and no additional complaints, except as documented.
--- NOTE | 2024-03-10 08:54 | OP.CCLET_ITS ---
03/10/2024 Mike Demarco Re : Colonoscopy procedure for Sanchez Ordoñez Dear Dav This procedure was performed on Sunday, March 10, 2024. My impressions and recommendations are as follows: Impressions : - The entire examined colon is normal on direct and retroflexion views. - No specimens collected. Recommendations : - Discharge patient to home. - Resume previous diet. - Continue present medications. - Repeat colonoscopy in 10 years for screening purposes. My findings are described in the full procedure note, which is enclosed. If I can be of further assistance, please feel free to contact me at Doctor phone number(s): , Work: . Sincerely, Raza Manzano MD 03/10/2024 8:53:34 AM This report has been signed electronically.
--- NOTE | 2024-03-10 08:54 | OP.COLON_ITS ---
Patient Name: Sanchez Ordoñez Procedure Date: 03/10/2024 8:29 AM Date of : 1965 Age: 58 Procedure: Colonoscopy Indications: Screening for colon cancer: Family history of colorectal cancer in multiple 2nd degree relatives Providers: Raza Manzano MD Referring MD: Mike Demraco Medicines: Propofol per Anesthesia Patient Profile: This is a 58 year old male. Refer to note in patient chart for documentation of history and physical. Last Colonoscopy: 5 years ago. Complications: No immediate complications. Procedure: Pre-Anesthesia Assessment: - Prior to the procedure, a History and Physical was performed, and patient medications and allergies were reviewed. The patient's tolerance of previous anesthesia was also reviewed. The risks and benefits of the procedure and the sedation options and risks were discussed with the patient. All questions were answered, and informed consent was obtained. Prior Anticoagulants: The patient has taken no anticoagulant or antiplatelet agents. After reviewing the risks and benefits, the patient was deemed in satisfactory condition to undergo the procedure. After I obtained informed consent, the scope was passed under direct vision. Throughout the procedure, the patient's blood pressure, pulse, and oxygen saturations were monitored continuously. The Colonoscope was introduced through the anus and advanced to the cecum, identified by appendiceal orifice and ileocecal valve. The colonoscopy was performed without difficulty. The patient tolerated the procedure well. The quality of the bowel preparation was good. The ileocecal valve, appendiceal orifice, and rectum were photographed. Scope In: 8:41:25 AM Scope Withdrawal Time 0 hours 6 minutes 32 seconds Scope Out: 8:51:04 AM Total Procedure Duration Time 0 hours 9 minutes 39 seconds Findings: The entire examined colon appeared normal on direct and retroflexion views. Impression: - The entire examined colon is normal on direct and retroflexion views. - No specimens collected. Recommendation: - Discharge patient to home. - Resume previous diet. - Continue present medications. - Repeat colonoscopy in 10 years for screening purposes. Procedure Code(s): --- Professional --- 52160, Colonoscopy, flexible; diagnostic, including collection of specimen(s) by brushing or washing, when performed (separate procedure) Diagnosis Code(s): --- Professional --- Z80.0, Family history of malignant neoplasm of digestive organs CPT copyright 2021 [employer]. All rights reserved. The codes documented in this report are preliminary and upon medical office technologist review may be revised to meet current compliance requirements. Raza Manzano MD 03/10/2024 8:53:34 AM This report has been signed electronically. Number of Addenda: 0 Note Initiated On: 03/10/2024 8:29 AM
[2024-03-10 08:55] VITALS: BP 116/71; BP 162/82; PULSE 66; RESP 16; TEMP 36.8; O2SAT 93
[2024-03-10 09:00] VITALS: BP 105/83; BP 116/71; BP 162/82; PULSE 16; PULSE 67; RESP 16; TEMP 36.8; O2SAT 95; O2SAT 96
--- NOTE | 2024-03-10 09:00 | PCM.POST.ANE ---
Anesthesia: Postop Eval I Current Vital Signs Temperature: 98.3 F Pulse Rate: 16 Blood Pressure: 116/71 Respiratory Rate: 16 Pulse Ox: 96 Oxygen Delivery Method: Room Air Assessment Airway patent: Yes Spontaneous unlabored respirations: Yes Mental status: Awake and Calm nausea: No Vomiting: No Anesthesia Complication: No Fluid Hydration Crystalloid volume administer (ml): 30 Total IV fluid infused: 30 Progress Note Anesthesia document: Postop Eval 1 completed: Yes
[2024-03-10 09:05] VITALS: BP 116/84; BP 162/82; PULSE 67; RESP 18; TEMP 37.2; O2SAT 95
[2024-03-10 09:16] VITALS: BP 162/82
--- NOTE | 2024-03-10 09:32 | PCM.POSTANE2 ---
Anesthesia Postop Eval I Sum Postop Eval Completion status Anesthesia document: Postop Eval 1 completed: Yes Anesthesia Postop Eval I Summary Anesthesia Postop Eval I Summary: Anesthesia Postop Eval I: Assessment Summary Airway patent Yes 03/10/24 09:00 [email or web address] Spontaneous unlabored Yes 03/10/24 09:00 [email or web address] respirations Mental status Awake,Calm 03/10/24 09:00 [email or web address] nausea No 03/10/24 09:00 [email or web address] Vomiting No 03/10/24 09:00 [email or web address] Anesthesia Postop Eval I: Fluid Summary Crystalloid volume administer 30 03/10/24 09:00 [email or web address] (ml) Colloids volume administered ( ml) Blood Product volume administered (ml) Total IV fluid infused 30 03/10/24 09:00 [email or web address] Anesthesia Postop Eval I: Summary Notes Anesthesia Complication No 03/10/24 09:00 [email or web address] Anesthesia Complication Comment: Post-operative progress note Anesthesia: Postop Eval II Evaluation Mental status: Awake Pain Level: 0 nausea: No Vomiting: No
== END 2024-03-10 09:22 | disposition home or self-care (01) ==
LOC: EN 07:28 → AC 07:28
PROVIDERS: PCP Family Medicine; Referring Provider Family Medicine; Visit Provider Surgery
PROC: 0DJD8ZZ Inspection of Lower Intestinal Tract, Via Natural or Artificial Opening Endoscopic (ICD-10-PCS; CPT 45378; principal; 2024-03-10 08:25)
DX: Z12.11 Encounter for screening for malignant neoplasm of colon (principal); E11.9 Type 2 diabetes mellitus without complications; Z79.84 Long term (current) use of oral hypoglycemic drugs; I10 Essential (primary) hypertension; Z80.0 Family history of malignant neoplasm of digestive organs; E78.00 Pure hypercholesterolemia, unspecified; G47.33 Obstructive sleep apnea (adult) (pediatric); Z99.89 Dependence on other enabling machines and devices; F32.A Depression, unspecified; F41.9 Anxiety disorder, unspecified; Z79.899 Other long term (current) drug therapy
CPT/HCPCS: 45378; 82962; A4216; J2405